=== PATIENT | male | born 1955 | race Caucasian/White ===

== ENCOUNTER 2020-09-04 06:58 | Outpatient (REF) | payer MEDICARE, SELFPAY ==
[2020-09-04 11:11] LABS: MANUAL DIFF FLAG NO
[2020-09-04 11:31] LABS: Basophils Percent Auto 0.5 % (0-2); Eosinophils Absolute Auto 0.1 X10*3/uL (0.0-0.4); Hematocrit 41.7 % (42-52); Hemoglobin 12.5 g/dl (14.0-18.0); Imm Gran Pct Auto 1.3 % (0.0-0.4); Lymphocytes Absolute Auto 1.1 X10*3/uL (1.2-4.9); Lymphocytes Percent Auto 13.4 % (20-40); Mean Corpuscular Hemoglobin 20.1 pg (27.0-33.0); Mean Platelet Volume 10.3 fL (9.4-12.4); Monocytes Absolute Auto 0.5 X10*3/uL (0.1-1.2); Monocytes Percent Auto 5.8 % (2-11); Neutrophils Absolute Auto 6.3 X10*3/uL (2.0-8.3); Platelet Count 312 X10*3/uL (160-400); Red Blood Count 6.22 X10*6/uL (4.60-5.80); Red Cell Distribution Width 17.9 % (11.0-16.0)
[2020-09-04 11:56] LABS: Alanine Aminotransferase 37 U/L (0-40); Albumin Level 4.6 g/dL (3.5-5.0); Alkaline Phosphatase 67 U/L (39-117); Anion Gap 15 (12-20); Aspartate Amino Transferase 18 U/L (5-37); Bilirubin Direct 0.3 mg/dL (0.0-0.5); Bilirubin Total 0.6 mg/dL (0.0-1.0); Blood Urea Nitrogen 18 mg/dL (9-16); Calcium 9.1 mg/dL (8.4-10.2); Carbon Dioxide 29 mmol/L (22-29); Chloride 100 mmol/L (96-108); Estimated Glomerular Filt Rate > 60; Glucose Random 200 mg/dL (60-115); Potassium 4.4 mmol/l (3.3-5.1); Sodium 140 mmol/L (135-145); Total Protein 7.1 g/dL (6.5-8.0); Uric Acid 6.8 mg/dL (3.4-7.0)
== END 2020-09-04 06:59 | disposition home or self-care (01) ==
LOC: HO.HMGCLDS 06:58
PROVIDERS: PCP Internal Medicine; Visit Provider Internal Medicine
DX: G70.00 Myasthenia gravis without (acute) exacerbation (principal); I10 Essential (primary) hypertension; M79.675 Pain in left toe(s)
CPT/HCPCS: 36415; 80048; 80076; 84550; 85025

== ENCOUNTER 2020-12-21 06:56 | Outpatient (REF) | payer MEDICARE, SELFPAY ==
[2020-12-21 11:15] LABS: Glucose Urine UA 100 MG/DL (NEG); Leukocyte Esterase Urine NEG (NEG); Nitrite Urine NEG (NEG); PH 6.5 (5.0-8.0); Urine Blood NEG (NEG); Urine Ketones NEG (NEG); Urine Protein NEG (NEG-TRACE)
[2020-12-21 11:17] LABS: Appearance Urine CLEAR; Color Urine YELLOW
[2020-12-21 11:58] LABS: Alanine Aminotransferase 37 U/L (0-40); Anion Gap 20 (12-20); Aspartate Amino Transferase 16 U/L (5-37); Blood Urea Nitrogen 15 mg/dL (9-16); Carbon Dioxide 28 mmol/L (22-29); Chloride 97 mmol/L (96-108); Cholesterol 228 mg/dL; Estimated Glomerular Filt Rate > 60; Glucose Fasting 251 mg/dL (60-99); HDL Cholesterol 36 mg/dL; LDL Cholesterol Calculated 147 mg/dl; Sodium 141 mmol/L (135-145); Triglycerides 227 mg/dL
[2020-12-21 12:03] LABS: Estimated Average Glucose 174 mg/dL; Hemoglobin A1c % 7.7 %
[2020-12-21 12:20] LABS: Prostate Specific Antigen 1.03 ng/mL (<0.05-4.0)
== END 2020-12-21 06:57 | disposition home or self-care (01) ==
LOC: HO.HMGCLDS 06:56
PROVIDERS: PCP Internal Medicine; Visit Provider Internal Medicine
DX: R35.0 Frequency of micturition (principal); E78.5 Hyperlipidemia, unspecified; I10 Essential (primary) hypertension; R73.01 Impaired fasting glucose; Z12.5 Encounter for screening for malignant neoplasm of prostate
CPT/HCPCS: 36415; 80048; 80061; 81003; 83036; 84153; 84450; 84460

== ENCOUNTER 2021-01-14 16:29 | Outpatient (REF) | payer MEDICARE, SELFPAY ==
--- NOTE | ~2021-01-14 | MR_ITS ---
MR LUMBAR SPINE WITHOUT CONTRAST CLINICAL INFORMATION: Lumbago with left-sided sciatica. COMPARISON: None available. TECHNIQUE: MRI of the lumbar spine was obtained using routine sequences without contrast. FINDINGS: There is grade 1 anterolisthesis of L4 on L5 and L5 on S1. Leftward convex lumbar scoliosis. Vertebral body heights are maintained. Moderate to severe disc volume loss at L4-L5 and mild disc volume loss at L5-S1. Vacuum phenomenon at the L4-L5 and L5-S1 levels. There Modic type I endplate signal changes at L4-L5 and L5-S1. There are no acute fractures. Conus terminates at the L1 level. Bilateral perinephric stranding. L1-L2: Disc contour is normal. No central canal stenosis and no foraminal stenosis. L2-L3: Small annular disc bulge and mild to moderate bilateral facet arthropathy. No central canal stenosis and no foraminal stenosis. L3-L4: There is a diffuse annular disc bulge and there is moderate bilateral facet arthropathy and ligamentum flavum thickening. Mild narrowing of the central canal as well as mild to moderate right and mild left foraminal stenosis without exiting nerve root compression. L4-L5: Superiorly migrating right paracentral disc extrusion and severe bilateral facet arthropathy, ligamentum flavum thickening, and epidural lipomatosis resulting in severe central canal stenosis as well as severe right and moderate left foraminal stenosis with compression of the exiting right greater than left L4 nerve roots. L5-S1: Grade 1 anterolisthesis. Severe bilateral facet arthropathy and ligamentum flavum thickening. Large bilateral facet joint effusions. No central canal stenosis. Moderate to severe left and moderate right foraminal stenosis with compression of the exiting left greater than right L5 nerve roots. MR/MR lumbar spine wo con IMPRESSION: - At L5-S1, grade 1 anterolisthesis in the setting of advanced multifactorial degenerative changes result in moderate to severe left and moderate right foraminal stenosis with compression of the exiting left greater than right L5 nerve roots. Large bilateral facet joint effusions at L5-S1 that can be correlated with flexion-extension views to exclude segmental instability. - At L4-L5, there is grade 1 anterolisthesis in the setting of advanced multifactorial degenerative changes but along with a superiorly migrating right paracentral disc extrusion and epidural lipomatosis result in severe central canal stenosis as well as severe right and moderate left foraminal stenosis with compression of the exiting right greater than left L4 nerve roots. - Additional degenerative findings as discussed above.
== END 2021-01-14 16:30 | disposition home or self-care (01) ==
LOC: HO.MRI 16:29
PROVIDERS: Visit Provider Internal Medicine
DX: M54.42 Lumbago with sciatica, left side (principal)
CPT/HCPCS: 72148

== ENCOUNTER 2021-03-05 11:16 | Outpatient (REF) | payer MEDICARE, SELFPAY ==
[2021-03-05 14:27] LABS: Estimated Average Glucose 131 mg/dL; Hemoglobin A1c % 6.2 %
[2021-03-05 14:30] LABS: Alanine Aminotransferase 23 U/L (0-40); Anion Gap 16 (12-20); Aspartate Amino Transferase 18 U/L (5-37); Blood Urea Nitrogen 16 mg/dL (9-16); Calcium 9.6 mg/dL (8.4-10.2); Carbon Dioxide 26 mmol/L (22-29); Chloride 102 mmol/L (96-108); Cholesterol 215 mg/dL; Estimated Glomerular Filt Rate > 60; Glucose Fasting 108 mg/dL (60-99); HDL Cholesterol 52 mg/dL; LDL Cholesterol Calculated 127 mg/dl; Potassium 3.4 mmol/L (3.3-5.1); Sodium 141 mmol/L (135-145); Triglycerides 181 mg/dL
[2021-03-05 14:33] LABS: Creatinine Urine 65.19 mg/dL; Microalbumin Urine < 5.0 mg/L
== END 2021-03-05 11:17 | disposition home or self-care (01) ==
LOC: HO.HMGCLDS 11:16
PROVIDERS: PCP Internal Medicine; Visit Provider Internal Medicine
DX: E11.65 Type 2 diabetes mellitus with hyperglycemia (principal); I10 Essential (primary) hypertension; E78.2 Mixed hyperlipidemia
CPT/HCPCS: 36415; 80048; 80061; 82043; 83036; 84450; 84460

== ENCOUNTER 2021-09-13 06:59 | Outpatient (REF) | payer MEDICARE, SELFPAY ==
[2021-09-13 11:56] LABS: Estimated Average Glucose 143 mg/dL; Hemoglobin A1c % 6.6 %
[2021-09-13 12:15] LABS: Alanine Aminotransferase 20 U/L (0-40); Anion Gap 14 (12-20); Aspartate Amino Transferase 15 U/L (5-37); Blood Urea Nitrogen 14 mg/dL (9-16); Calcium 9.8 mg/dL (8.4-10.2); Carbon Dioxide 29 mmol/L (22-29); Chloride 102 mmol/L (96-108); Cholesterol 184 mg/dL; Estimated Glomerular Filt Rate > 60; Glucose Fasting 152 mg/dL (60-99); HDL Cholesterol 37 mg/dL; LDL Cholesterol Calculated 111 mg/dl; Potassium 3.7 mmol/L (3.3-5.1); Sodium 141 mmol/L (135-145); Triglycerides 183 mg/dL; Uric Acid 8.9 mg/dL (3.4-7.0)
[2021-09-13 12:36] LABS: PSA,Total (Free>4and<10) 0.84 ng/mL (0.00-4.00)
== END 2021-09-13 07:00 | disposition home or self-care (01) ==
LOC: HO.HMGCLDS 06:59
PROVIDERS: PCP Internal Medicine; Visit Provider Internal Medicine
DX: Z12.5 Encounter for screening for malignant neoplasm of prostate (principal); E11.9 Type 2 diabetes mellitus without complications; E78.5 Hyperlipidemia, unspecified; I10 Essential (primary) hypertension; R22.41 Localized swelling, mass and lump, right lower limb
CPT/HCPCS: 36415; 80048; 80061; 83036; 84153; 84450; 84460; 84550

== ENCOUNTER → 2021-10-09 09:10 | Outpatient (BNVA) | payer MEDICARE, SELFPAY | PROVIDERS: PCP Internal Medicine; Referring Provider Internal Medicine; Visit Provider Physician Assistant | DX: Z12.11 Encounter for screening for malignant neoplasm of colon (principal); K21.9 Gastro-esophageal reflux disease without esophagitis; K44.9 Diaphragmatic hernia without obstruction or gangrene | CPT/HCPCS: 99202 ==

== ENCOUNTER 2022-07-15 09:27 | Outpatient (REF) | payer MEDICARE, SELFPAY ==
[2022-07-15 12:00] LABS: Estimated Average Glucose 146 mg/dL; Hemoglobin A1C 150.6995 umol/L; Hemoglobin A1c % 6.7 %
[2022-07-15 12:09] LABS: Creatinine Urine 67.27 mg/dL; Microalbum/Creatinine Ratio Ur 11.8 ug/mg cr
[2022-07-15 12:17] LABS: Alanine Aminotransferase 32 U/L (0-40); Anion Gap 14 (12-20); Aspartate Amino Transferase 21 U/L (5-37); Blood Urea Nitrogen 14 mg/dL (9-16); Calcium 9.3 mg/dL (8.4-10.2); Carbon Dioxide 29 mmol/L (22-29); Chloride 103 mmol/L (96-108); Cholesterol 213 mg/dL; Estimated Glomerular Filt Rate > 60; Glucose Fasting 173 mg/dL (60-99); HDL Cholesterol 50 mg/dL; LDL Cholesterol Calculated 132 mg/dl; PSA,Total (Free>4and<10) 0.76 ng/mL (0.00-4.00); Sodium 142 mmol/L (135-145); Triglycerides 156 mg/dL; Vitamin D 25-OH Total 20.8 ng/mL (>30)
== END 2022-07-15 09:28 | disposition home or self-care (01) ==
LOC: HO.HMGCLDS 09:27
PROVIDERS: PCP Internal Medicine; Visit Provider Internal Medicine
DX: E11.9 Type 2 diabetes mellitus without complications (principal); I10 Essential (primary) hypertension; E78.5 Hyperlipidemia, unspecified; G70.00 Myasthenia gravis without (acute) exacerbation; Z12.5 Encounter for screening for malignant neoplasm of prostate
CPT/HCPCS: 36415; 80048; 80061; 82043; 82306; 83036; 84153; 84450; 84460

== ENCOUNTER 2022-12-09 06:56 | Day surgery (SDC) | payer MEDICARE, SELFPAY ==
[2022-12-04 12:47] VITALS: BMI 32.8
--- NOTE | 2022-12-08 12:38 | P.CONAN_ITS ---
Documented by User: Marla Alfonso NP 12/08/22 12:40 HPI - Anesthesia Eval Consult details Narrative: 67yo M for Colonoscopy Myesthenia Gravis on daily low dose prednisone s/p L main bronch carcinoid tumor resection ~2016 [facility] Active Problems Active Problems: All Active Problems (Updated 12/04/22 @ 12:35 by Colleen Thao, RN) Hypertension, essential (Acute) Myasthenia gravis (Acute) Left wrist tendinitis (Acute) Encounter for screening for malignant neoplasm of prostate (Acute) Dyslipidemia (Acute) Type 2 diabetes mellitus without complication, without long-term current use of insulin (Acute) Hiatal hernia with GERD (Acute) Lumbar disc herniation with radiculopathy (Acute) Bronchial carcinoid tumors (Acute) Osteoarthritis of knees, bilateral (Acute) Hernandez anemia (Acute) Past Medical History Medical History (Updated 12/09/22 @ 07:12 by Renetta Nathan, GRACE) Bronchial carcinoid tumors Hernandez anemia Dyslipidemia Elevated cholesterol Encounter for screening for malignant neoplasm of prostate GERD (gastroesophageal reflux disease) Hiatal hernia with GERD History of COVID-19 HTN (hypertension) Left wrist tendinitis Loose right total knee arthroplasty Lumbago with sciatica, left side Lumbar disc herniation with radiculopathy Myasthenia gravis Osteoarthritis of knees, bilateral Spondylolisthesis of lumbar region Family History Family History Mother Hernandez anemia Father Essential hypertension Surgical History Surgical History (Updated 12/04/22 @ 12:42 by Colleen Thao RN) H/O thymectomy History of appendectomy History of esophagogastroduodenoscopy (EGD) Hx of colonoscopy Social History Social History Housing: House Alcohol intake: current Alcohol intake frequency: holidays/special occasions only Patient Tobacco Use Status: Never used Tobacco e-Cigarette/Vaping Use: Never Used Are you DNR?: No Advance Directives: No Advance Directives Information Provided: Yes Nutrition Risks: No Nutritional Risk service: No Current occupational status: employed Meds Allergies Allergy/AdvReac Type Severity Reaction Status Date / Time morphine AdvReac Unknown stomach Verified 07/15/22 08:30 upset Home Medications Medication Instructions Recorded Confirmed Last Taken Type amlodipine 5 mg-benazepril 20 mg 1 cap PO DAILY 01/04/21 12/04/22 Unknown History capsule calcium carbonate 600 mg-vitamin 1 tab PO BID 01/04/21 12/04/22 Unknown History D3 5 mcg (200 unit) tablet chlorthalidone 25 mg tablet 25 mg PO DAILY 10/09/21 12/04/22 Unknown History prednisone 1 mg tablet 4 mg PO QAM 12/04/22 12/04/22 12/09/22 History rosuvastatin 5 mg tablet 5 mg PO 3XW 12/04/22 12/04/22 Unknown History Exam Exam Date and Time: December 08, 2022 1238 Height,Weight and Vital Signs: Height 6 ft Weight 109.769 kg Assessment and Plan Assessment Anesthesia Assessment: Chart Reviewed Documented by User: Emilie Viramontes MD 12/09/22 09:36 [facility] Past Medical History Medical History (Updated 12/09/22 @ 07:12 by Renetta Nathan, GRACE) Bronchial carcinoid tumors Hernandez anemia Dyslipidemia Elevated cholesterol Encounter for screening for malignant neoplasm of prostate GERD (gastroesophageal reflux disease) Hiatal hernia with GERD History of COVID-19 HTN (hypertension) Left wrist tendinitis Loose right total knee arthroplasty Lumbago with sciatica, left side Lumbar disc herniation with radiculopathy Myasthenia gravis Osteoarthritis of knees, bilateral Spondylolisthesis of lumbar region Family History Family History Mother Hernandez anemia Father Essential hypertension Family history of problems with anesthesia: No Surgical History Surgical History (Updated 12/04/22 @ 12:42 by Colleen Thao RN) H/O thymectomy History of appendectomy History of esophagogastroduodenoscopy (EGD) Hx of colonoscopy History of Problems with Anesthesia: No Social History Social History Housing: House Alcohol intake: current Alcohol intake frequency: holidays/special occasions only Patient Tobacco Use Status: Never used Tobacco e-Cigarette/Vaping Use: Never Used Are you DNR?: No Advance Directives: No Advance Directives Information Provided: Yes Nutrition Risks: No Nutritional Risk service: No Current occupational status: employed Meds Allergies Allergy/AdvReac Type Severity Reaction Status Date / Time morphine AdvReac Unknown stomach Verified 07/15/22 08:30 upset Home Medications Medication Instructions Recorded Confirmed Last Taken Type amlodipine 5 mg-benazepril 20 mg 1 cap PO DAILY 01/04/21 12/04/22 Unknown History capsule calcium carbonate 600 mg-vitamin 1 tab PO BID 01/04/21 12/04/22 Unknown History D3 5 mcg (200 unit) tablet chlorthalidone 25 mg tablet 25 mg PO DAILY 10/09/21 12/04/22 Unknown History prednisone 1 mg tablet 4 mg PO QAM 12/04/22 12/04/22 12/09/22 History rosuvastatin 5 mg tablet 5 mg PO 3XW 12/04/22 12/04/22 Unknown History Exam Airway Mallampati Class: II TM Dist: >3cm Neck ROM: Full Heart: rr Lungs: cta Assessment and Plan Assessment Anesthesia Assessment: Anesthesia Plan Discussed Final Anesthetic Review Family History of Problems with Anesthesia: No History of Problems with Anesthesia: No NPO: Yes ASA Class: II Final Preanesthetic Review: No Changes in Pt Med Stat and Consent Obtained/Reviewed Patient Risk: Low Procedure Risk: Low Anesthetic Plan Anesthetic Plan: MAC: Disposition: Standard PACU
[2022-12-09 07:02] VITALS: BP 170/90; PULSE 78; RESP 20; TEMP 36.6; O2SAT 97
[2022-12-09] MEDS: Lactated Ringers 1,000 ML 100 ML IVCONT (07:20)
--- NOTE | 2022-12-09 08:12 | MHC.SHP ---
Pre-Procedural Eval Section A Date of Service: 12/09/22 Section B Chief Complaint: screening Relevant Family History (Specify if Yes): No Relevant Social History: None Present Medications: see Short Stay Collaborative assessment Medical History: Significant History (Bronchial carcinoid tumors Hernandez anemia Dyslipidemia Hiatal hernia with GERD Loose right total knee arthroplasty Lumbago with sciatica, left side Lumbar disc herniation with radiculopathy Osteoarthritis of knees, bilateral Spondylolisthesis of lumbar region Type 2 diabetes mellitus without complica) History of Previous Operations: Relevant previous surgery/procedure and date(s) (H/O thymectomy History of appendectomy History of esophagogastroduodenoscopy (EGD) Hx of colonoscopy) Allergies: Allergies Allergy/AdvReac Type Severity Reaction Status Date / Time morphine AdvReac Unknown stomach Verified 07/15/22 08:30 upset Review of Systems Sugical H&P ROS: Negative: Constitution, Cardiovascular, Respiratory, Neurological, Psychiatric, Hem-Onc, Allergic/Immunologic, Gastrointestinal, Genitourinary, Musculoskeletal, Integumentary, Endocrine and Eyes/Ears/Nose/Throat Exam Surgical H&P Exam: Normal: HEENT, Normal: Heart, Normal: Lungs, Normal: Extremities, Normal: Abdomen, Normal: Skin and Normal: Neurological Plan Diagnosis/Plan: Unchanged I have reviewed the history and physical and performed a pertinent physical examination on my patient. No changes have occurred unless specified. Time Spent With Patient Time: Total time managing care of this patient today ____ minutes.
--- NOTE | 2022-12-09 08:14 | P.OP_ITS ---
Operative Note Operative Note Date of Service: 12/09/22 Narrative: Operative Information Procedure Description: Colonoscopy Indication: screening Anesthesia: MAC COLONOSCOPY Instrument: Olympus variable stiffness pediatric scope 190L Colonoscopy Monitoring: Vital signs and clinical assessment, continuous EKG monitoring, Pulse oximetry, Carbon Dioxide monitoring and blood pressure monitoring were done throughout the procedure. Colon withdrawal time was 9 minutes. Procedure: The patient was placed in the left lateral decubitis position and pre-procedure medications were administered. After a digital rectal examination of the ano-rectum, the video colonoscope was inserted into the rectum and advanced through the colon to the cecum/TI. The colonoscope was slowly withdrawn in a retrograde panoramic fashion and the colon mucosa was carefully examined including a retroflexed view of the rectum. Findings and interventions are described below. Procedure Difficulty: easy Findings: Terminal Ileum-normal Cecum:normal Ascending Colon: 6-8 mm sessile polyp removed with cold snare, not retrieved Transverse Colon -normal Descending Colon:normal Sigmoid Colon: 7-9 mm sessile polyp removed with cold snare, retrieved Rectum: Retroflexion with medium sized internal hemorrhoids, grade I Anorectum - normal Colon preparation: [place] Bowel Preparation Scale Right colon; 2 Transverse colon: 3 Left colon; 2 (0 = Unprepared colon segment with mucosa not seen due to solid stool that cannot be cleared. 1 = Portion of mucosa of the colon segment seen, but other areas of the colon segment not well seen due to staining, residual stool and/or opaque liquid. 2 = Minor amount of residual staining, small fragments of stool and/or opaque liquid, but mucosa of colon segment seen well. 3 = Entire mucosa of colon segment seen well with no residual staining, small fragments of stool or opaque liquid) Impression and Post Procedure Diagnosis: polyps internal hemorrhoids Plan: High fiber diet leaflet Avoid straining at stool, epsom salts and sitz bath, anusol supps or cream Repeat Colonoscopy in 5-6 years or earlier if clinically indicated Above findings were reviewed with the patient and relevant handouts were provided if indicated.
[2022-12-09 08:50] VITALS: BP 108/56; PULSE 70; RESP 16; TEMP 36.4; O2SAT 94
[2022-12-09 09:08] VITALS: BP 133/71; PULSE 67; RESP 18; TEMP 36.6; O2SAT 98
== END 2022-12-09 09:50 | disposition home or self-care (01) ==
PROVIDERS: PCP Internal Medicine; Visit Provider Internal Medicine Gastroenterology
PROC: 0DJD8ZZ Inspection of Lower Intestinal Tract, Via Natural or Artificial Opening Endoscopic (ICD-10-PCS; CPT 45378; principal; 2022-12-09 08:10)
DX: Z12.11 Encounter for screening for malignant neoplasm of colon (principal); Z80.0 Family history of malignant neoplasm of digestive organs; D12.5 Benign neoplasm of sigmoid colon; K63.5 Polyp of colon; K64.0 First degree hemorrhoids; D56.1 Beta thalassemia; K21.9 Gastro-esophageal reflux disease without esophagitis; K44.9 Diaphragmatic hernia without obstruction or gangrene; E78.5 Hyperlipidemia, unspecified; E11.9 Type 2 diabetes mellitus without complications; Z88.8 Allergy status to other drugs, medicaments and biological substances; Z85.110 Personal history of malignant carcinoid tumor of bronchus and lung; Z79.52 Long term (current) use of systemic steroids; Z79.899 Other long term (current) drug therapy; Z98.890 Other specified postprocedural states; Z86.16 Personal history of COVID-19
CPT/HCPCS: 45385; 88305

== ENCOUNTER → 2022-12-29 07:19 | Outpatient (BNVA) | payer MEDICARE, SELFPAY | PROVIDERS: PCP Internal Medicine; Referring Provider Internal Medicine; Visit Provider Physician Assistant | DX: K64.9 Unspecified hemorrhoids (principal); D36.9 Benign neoplasm, unspecified site | CPT/HCPCS: Q3014 ==

== ENCOUNTER 2023-01-12 11:25 | Outpatient (REF) | payer MEDICARE, SELFPAY ==
[2023-01-12 14:16] LABS: Alanine Aminotransferase 26 U/L (0-40); Anion Gap 15 (12-20); Aspartate Amino Transferase 20 U/L (5-37); Blood Urea Nitrogen 12 mg/dL (9-16); Calcium 9.6 mg/dL (8.4-10.2); Carbon Dioxide 25 mmol/L (22-29); Chloride 104 mmol/L (96-108); Cholesterol 216 mg/dL; Estimated Glomerular Filt Rate > 60; Glucose Fasting 134 mg/dL (60-99); HDL Cholesterol 51 mg/dL; LDL Cholesterol Calculated 129 mg/dl; Sodium 140 mmol/L (135-145); Triglycerides 181 mg/dL; Uric Acid 9.2 mg/dL (3.4-7.0)
[2023-01-12 14:26] LABS: Creatinine Urine 38.66 mg/dL; Microalbum/Creatinine Ratio Ur 23.2 ug/mg cr
[2023-01-12 14:34] LABS: PSA,Total (Free>4and<10) 0.66 ng/mL (0.00-4.00)
== END 2023-01-12 11:26 | disposition home or self-care (01) ==
LOC: HO.HMGCLDS 11:25
PROVIDERS: PCP Internal Medicine; Visit Provider Internal Medicine
DX: Z12.5 Encounter for screening for malignant neoplasm of prostate (principal); D3A.090 Benign carcinoid tumor of the bronchus and lung; E11.9 Type 2 diabetes mellitus without complications; E78.5 Hyperlipidemia, unspecified; I10 Essential (primary) hypertension; E79.0 Hyperuricemia without signs of inflammatory arthritis and tophaceous disease
CPT/HCPCS: 36415; 80048; 80061; 82043; 84153; 84450; 84460; 84550

== ENCOUNTER 2023-07-14 08:20 | Outpatient (AMB) | payer MEDICARE, SELFPAY ==
--- NOTE | 2023-07-14 08:28 | A.OFFVIS_ITS ---
<Statement entered by Janice Slater MD - 01/04/25 15:25> This note has been administratively?closed. Intake Vital Signs 07/14/23 08:29 Height 6 ft Weight 246 lb BMI 33.4 BP 134/70 Blood Pressure Location Lt brachial Position Sitting Pulse 71 Pulse Source Pulse Oximeter Pulse Oximetry (%) 97 Oxygen Delivery Method Room Air Intake Visit Reasons: SWV G0439 Allergies morphine Adverse Reaction (Unknown, Verified 07/14/23 09:19) stomach upset Medication List - Last Reconciled 07/14/23 by Janice Slater MD amlodipine-benazepril 5-20 mg 1 cap PO DAILY calcium carbonate-vitamin D3 600 mg-5 mcg (200 unit) 1 tab PO BID chlorthalidone 25 mg PO DAILY omeprazole 20 mg PO QAM prednisone 3 mg PO QAM HPI SWV G0439 HPI Details SWV ? 68-year-old male with hyperuricemia with history of gout, has hypertension, myasthenia gravies, history of bronchial carcinoid tumors, osteoarthritis of knees and Hernandez anemia , dyslipidemia and type 2 diabetes mellitus diet controlled, presents for his subsequent annual wellness visit.? He is up-to-date with his screening colonoscopy done December [address] Soler with removal of a tubular adenoma, repeat colonoscopy due in another 5 years. Had recent fasting lipid panel and fasting blood sugar done, which showed as slight elevation in his triglycerides and normal blood sugar respectively. He does not want to get any vaccinations. ? Medical / Social History Reviewed? Past Medical History ?Yes . ? [place] of Care / Care Team list updated ?Yes . ? Surgical/Hospitalization History ?Yes . ? Current Medications (including OTC and supplements) ?Yes . ? Family History ?Yes . ? Tobacco Control form ?Yes . ? AUDIT-C (Alcohol use) form ?Yes . ? Illicit drug use in Social History ?Yes . ? Current diagnosis of depression? ?No ? Appropriate PHQ2/PHQ9 completed ?Yes . ? Data entered by ?C D Stripper and reviewed by provider ? Fall Risk ? Fall History? Have you had any falls with injury in the past year? ?No . ? Have you had two or more falls in the past year? ?No . ? Fall Risk Assessment: ?No falls in the past year . ? HRA filled out by the patient, reviewed by Provider and scanned. ? IPPE/AWV ? Balance? Romberg ?Yes . ? Tandem walk ?Yes . ? Walk and Turn ?Yes . ? Rise from sit to stand ?Yes . ?Vision? Corrective lens ?no ? Vision screen ? , overdue to get his eye exam, has not been seen by an bottle selector for several years now ?Hearing? Whisper test ?pass . ?Written Plan?Completed. See Patient Documents.? [facility] Medical History (Updated 07/14/23 @ 09:26 by Janice Slater MD) Hyperuricemia History of COVID-19 Myasthenia gravis Elevated cholesterol GERD (gastroesophageal reflux disease) HTN (hypertension) Left wrist tendinitis Encounter for screening for malignant neoplasm of prostate Spondylolisthesis of lumbar region Dyslipidemia Loose right total knee arthroplasty Hiatal hernia with GERD Lumbar disc herniation with radiculopathy Bronchial carcinoid tumors Osteoarthritis of knees, bilateral Hernadnez anemia Lumbago with sciatica, left side Surgical History History of esophagogastroduodenoscopy (EGD) Hx of colonoscopy H/O thymectomy History of appendectomy Family History Mother Hernandez anemia Father Essential hypertension Social History Housing: House Alcohol intake: current Alcohol intake frequency: holidays/special occasions only Patient Tobacco Use Status: Never used Tobacco e-Cigarette/Vaping Use: Never Used service: No Current occupational status: employed Cognitive needs: No Hearing needs: No Vision needs: No Questionnaire Medicare Wellness Checkup [age] What gender do you identify with?: male During the past 4 weeks, how much have you been bothered by emotional problems such as feeling anxious, depressed, irritable, sad or downhearted, and blue?: not at all During the past 4 weeks, how much bodily pain have you generally had?: moderate pain During the past 4 weeks, was someone available to help you if you needed & wanted help?: yes, as much as I wanted During the past 4 weeks, what was the hardest physical activity you could do for at least 2 minutes?: heavy Can you get to places out of walking distance without help? (For eg., can you travel alone on buses, taxis or drive your car?): Yes Can you go shopping for groceries or clothes without someone's help?: Yes Can you prepare your own meals?: Yes Can you do your housework without help?: Yes Because of any health problems, do you need the help of another person with your personal care needs such as eating, bathing, dressing or getting around the house?: Yes Can you handle your own money without help?: Yes During the past 4 weeks, how would you rate your health in general?: very good During the past 4 weeks how have things been going for you?: pretty well Are you having difficulties driving your car?: no Do you always fasten your seat belt when you are in a car?: yes, sometimes During past 4 weeks, have you been bothered by the following: never: Falling or dizzy when standing up, Sexual problems?, Trouble eating well?, Teeth or denture problems? and Problems using the telephone? and seldom: Tiredness or fatigue? Have you fallen 2 or more times in the past year?: No Are you afraid of falling?: No Are you a smoker?: no During the past 4 weeks, how many drinks of wine, beer, or other alcoholic beverages did you have?: 2-5 drinks per week Do you exercise for about 20 minutes 3 or more times a week?: yes, some of the time Have you been given information to help with the following?: no: Hazards in your house that might hurt you? and no: Keeping track of your medications? How often do you have trouble taking medicines the way you have been told to take them?: I always take medicine as prescribed How confident are you that you can control & manage most of your health problems?: very confident What is your race?: White Mini Mental State Exam (MMSE) Orientation What is the (year) (season) (date) (day) (month)?: year (2022), season (Fall), date (07/14/2023), day (Thursday) and month (July) Where are we (state) (county) (town or city) (hospital) (floor)?: state ([place]), formerly [facility], [facility] ([place]), town or city ([place]) and hospital/clinic ([facility]) Score Score: 9 Activity of Daily Living Bathing - sponge bath, tub bath or shower: receives no assistance (gets in/out by self, if usual bathing means Dressing - getting clothes from closets & drawers, including inner/outer garments & fasteners.: gets clothes & gets completely dressed without help Toileting - going to the 'toilet room' for urine/bowel elimination & cleaning self/arranging clothes: goes to toilet room, cleans self, arranges clothes without help Transfer: moves in & out of bed and chair without help (may use support object) Continence: controls urination/bowel movements completely by self Feeding: feeds self without help Total Score: 0 Information obtained from: patient Using telephone: independent Traveling: independent Shopping: independent Preparing meals: independent Housework: independent Taking medicine: independent Managing money: independent PHQ-9 Over the last 2 weeks, how often have you been bothered by any of the following problems? 1. Little interest or pleasure in doing things: not at all 2. Feeling down, depressed, or hopeless: not at all 3. Trouble falling or staying asleep, or sleeping too much: not at all 4. Feeling tired or having little energy: not at all 5. Poor appetite or overeating: not at all 6. Feeling bad about yourself - or that you are a failure or have let yourself or your family down: not at all 7. Trouble concentrating on things, such as reading the newspaper or watching television: not at all 8. Moving or speaking so slowly that other people could have noticed. Or the opposite - being so fidgety or restless that you have been moving around a lot more than usual: not at all 9. Thoughts that you would be better off or of hurting yourself in some way: not at all Total score: 0 Depression Screening Interpretation: Negative Depression Screening Done: Yes 14740 - PHQ-9 Billing: Yes Source: Developed by Drs. Gunnar Jordan, Vandana Jerry, Marvin Natarajan and colleagues, with an educational randall from [employer]. Physical Exam Vital Signs: Last Vital Signs Pulse 71 07/14/23 08:29 BP 134/70 07/14/23 08:29 Pulse Ox 97 07/14/23 08:29 Oxygen Delivery Method Room Air 07/14/23 08:29 BMI result Body Mass Index 33.4 Assessment & Plan Assessment & Plan (1) Hyperuricemia: Code(s): E79.0 - Hyperuricemia without signs of inflammatory arthritis and tophaceous disease (2) Tubular adenoma: Code(s): D36.9 - Benign neoplasm, unspecified site (3) Hypertension, essential: Code(s): I10 - Essential (primary) hypertension (4) Myasthenia gravis: Code(s): G70.00 - Myasthenia gravis without (acute) exacerbation (5) Type 2 diabetes mellitus without complication, without long-term current use of insulin: Code(s): E11.9 - Type 2 diabetes mellitus without complications (6) Hiatal hernia with GERD: Comment: well controlled with ppi-continue to avoid culprits previous EGD- Code(s): K21.9 - Gastro-esophageal reflux disease without esophagitis; K44.9 - Diaphragmatic hernia without obstruction or gangrene (7) Lumbar disc herniation with radiculopathy: Code(s): M51.16 - Intervertebral disc disorders with radiculopathy, lumbar region (8) Osteoarthritis of knees, bilateral: Code(s): M17.0 - Bilateral primary osteoarthritis of knee (9) Hernandez anemia: Code(s): 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 (10) Encounter for subsequent annual wellness visit (AWV) in Medicare patient: Code(s): Z00.00 - Encounter for general adult medical examination without abnormal findings (11) Advanced directives, counseling/discussion: Code(s): Z71.89 - Other specified counseling Quality Reporting (2019) Depression/Bipolar (159/160/161/177) PHQ-9: Total score: 0 Coding Level of Care Code Medicare Subsequent (G0439) Diagnoses Hyperuricemia E79.0 Tubular adenoma D36.9 Hypertension, essential I10 Myasthenia gravis G70.00 Type 2 diabetes mellitus without complication, without long-term current use of insulin E11.9 Hiatal hernia with GERD K21.9; K44.9 Lumbar disc herniation with radiculopathy M51.16 Osteoarthritis of knees, bilateral M17.0 Hernandez anemia D56.1 Encounter for subsequent annual wellness visit (AWV) in Medicare patient Z00.00 Advanced directives, counseling/discussion Z71.89 CPT Codes Advance Care Planning - Time spent: 16-45 minutes ([id number]) Advance Care Planning Advance Care Planning discussion: Completed/Scanned Date of discussion: 07/14/23 Who was present: Patient Forms completed: Health Care Proxy and MOLST (Already done last visit) Time spent: 16-45 minutes Actual minutes spent: 16
[2023-07-14 08:29] VITALS: BP 134/70; PULSE 71; O2SAT 97; BMI 33.4
== END 2023-07-14 09:20 | disposition home or self-care (01) ==
PROVIDERS: Visit Provider Internal Medicine
DX: E79.0 Hyperuricemia without signs of inflammatory arthritis and tophaceous disease (principal); D36.9 Benign neoplasm, unspecified site; I10 Essential (primary) hypertension; G70.00 Myasthenia gravis without (acute) exacerbation; E11.9 Type 2 diabetes mellitus without complications; K21.9 Gastro-esophageal reflux disease without esophagitis; K44.9 Diaphragmatic hernia without obstruction or gangrene; M51.16 Intervertebral disc disorders with radiculopathy, lumbar region; M17.0 Bilateral primary osteoarthritis of knee; D56.1 Beta thalassemia; Z00.00 Encounter for general adult medical examination without abnormal findings; Z71.89 Other specified counseling
CPT/HCPCS: 99499

== ENCOUNTER 2024-07-19 10:36 | Outpatient (AMB) | payer MEDICARE, SELFPAY ==
--- NOTE | 2024-07-19 10:39 | A.OFFVIS_ITS ---
Intake Vital Signs 07/19/24 10:42 Height 6 ft Weight 239 lb BMI 32.4 BP 142/70 H Blood Pressure Location Rt brachial Position Sitting Pulse 81 Pulse Source Pulse Oximeter Pulse Oximetry (%) 99 Oxygen Delivery Method Room Air Intake Visit Reasons: SWV G0439 - see comments Intake Note: Pt is here today for his SWV: Last colonoscopy 12/09/22 Allergies morphine Adverse Reaction (Unknown, Verified 07/19/24 11:27) stomach upset Medication List - Last Reconciled 07/19/24 by Janice Slater MD amlodipine-benazepril 5-20 mg 1 cap PO DAILY calcium carbonate-vitamin D3 600 mg-5 mcg (200 unit) 1 tab PO BID chlorthalidone 25 mg PO DAILY omeprazole 20 mg PO QAM prednisone 2 mg PO QAM HPI SWV G0439 - see comments HPI Details SWV ? 69-year-old male with hyperuricemia with history of gout, has hypertension, myasthenia gravies, history of bronchial carcinoid tumors, osteoarthritis of knees and Hernandez anemia , dyslipidemia and type 2 diabetes mellitus diet controlled, presents for his subsequent annual wellness visit.? He is up-to-date with his screening colonoscopy done December [address] Soler with removal of a tubular adenoma, repeat colonoscopy due in another 5 years. Had a fasting lipid panel and fasting blood sugar done last year, which showed as slight elevation in his triglycerides and normal blood sugar respectively. He declines getting the flu shot does not want to get a COVID vaccine or the shingles vaccine but willing to get the Prevnar 20 vaccination. ? Medical / Social History Reviewed? Past Medical History ?Yes . ? [place] of Care / Care Team list updated ?Yes . ? Surgical/Hospitalization History ?Yes . ? Current Medications (including OTC and supplements) ?Yes . ? Family History ?Yes . ? Tobacco Control form ?Yes . ? AUDIT-C (Alcohol use) form ?Yes . ? Illicit drug use in Social History ?Yes . ? Current diagnosis of depression? ?No ? Appropriate PHQ2/PHQ9 completed ?Yes . ? Data entered by ?Customer Experience Associate and reviewed by provider ? Fall Risk ? Fall History? Have you had any falls with injury in the past year? ?No . ? Have you had two or more falls in the past year? ?No . ? Fall Risk Assessment: ?No falls in the past year . ? HRA filled out by the patient, reviewed by Provider and scanned. ?? SWV ? Balance? Romberg ?Yes . ? Tandem walk ?Yes . ? Walk and Turn ?Yes . ? Rise from sit to stand ?Yes . ?Vision? Corrective lens ?no ? Vision screen ? , overdue to get his eye exam, has not been seen by an container coordinator for several years now ?Hearing? Whisper test ?pass . ?Written Plan?Completed. See Patient Documents.? HPI Comments History of Present Illness Details Lui gutierrez also is here complaining of slight drooping in his right upper eyelid, which has been present now for the last several weeks. 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 Still has a foreign body sensation inside his right eye at times.. Denies any change in his vision, no abnormal tearing, no headaches. He does not have any regular eye doctor that he goes to see, would like a referral to one REPLACED BY [facility] Medical History (Updated 07/21/24 @ 01:27 by Janice Slater MD) History of adenomatous polyp of colon Drooping eyelid Hyperuricemia History of COVID-19 Myasthenia gravis Elevated cholesterol GERD (gastroesophageal reflux disease) HTN (hypertension) Left wrist tendinitis Encounter for screening for malignant neoplasm of prostate Spondylolisthesis of lumbar region Dyslipidemia Loose right total knee arthroplasty Hiatal hernia with GERD Lumbar disc herniation with radiculopathy Bronchial carcinoid tumors Osteoarthritis of knees, bilateral Hernandez anemia Lumbago with sciatica, left side Surgical History History of esophagogastroduodenoscopy (EGD) Hx of colonoscopy H/O thymectomy History of appendectomy Family History Mother Hernandez anemia Father Essential hypertension Social History Housing: House Alcohol intake: current Alcohol intake frequency: holidays/special occasions only Patient Tobacco Use Status: Never used Tobacco e-Cigarette/Vaping Use: Never Used service: No Current occupational status: employed Cognitive needs: No Hearing needs: No Vision needs: No Questionnaire Medicare Wellness Checkup What [age] What gender do you identify with?: male During the past 4 weeks, how much have you been bothered by emotional problems such as feeling anxious, depressed, irritable, sad or downhearted, and blue?: not at all During the past 4 weeks, has your physical & emotional health limited your social activities with family, friends, neighbors, or groups?: not at all During the past 4 weeks, how much bodily pain have you generally had?: mild pain During the past 4 weeks, was someone available to help you if you needed & wanted help?: yes, as much as I wanted During the past 4 weeks, what was the hardest physical activity you could do for at least 2 minutes?: very heavy Can you get to places out of walking distance without help? (For eg., can you travel alone on buses, taxis or drive your car?): Yes Can you go shopping for groceries or clothes without someone's help?: Yes Can you prepare your own meals?: Yes Can you do your housework without help?: Yes Because of any health problems, do you need the help of another person with your personal care needs such as eating, bathing, dressing or getting around the house?: No Can you handle your own money without help?: Yes During the past 4 weeks, how would you rate your health in general?: very good During the past 4 weeks how have things been going for you?: pretty well Are you having difficulties driving your car?: no Do you always fasten your seat belt when you are in a car?: yes, sometimes During past 4 weeks, have you been bothered by the following: never: Falling or dizzy when standing up, Sexual problems?, Trouble eating well?, Teeth or denture problems?, Problems using the telephone? and Tiredness or fatigue? Have you fallen 2 or more times in the past year?: No Are you afraid of falling?: No Are you a smoker?: no During the past 4 weeks, how many drinks of wine, beer, or other alcoholic beverages did you have?: 2-5 drinks per week Do you exercise for about 20 minutes 3 or more times a week?: yes, some of the time Have you been given information to help with the following?: no: Hazards in your house that might hurt you? and no: Keeping track of your medications? How often do you have trouble taking medicines the way you have been told to take them?: I always take medicine as prescribed How confident are you that you can control & manage most of your health problems?: very confident What is your race?: White Mini Mental State Exam (MMSE) Orientation What is the (year) (season) (date) (day) (month)?: year (2023), season (Fall), date (07/19/2024), day (Thursday) and month (July) Where are we (state) (county) (town or city) (hospital) (floor)?: state ([place]), county ([place]), town or city ([place]) and hospital/clinic ([facility]) Score Score: 9 Activity of Daily Living Bathing - sponge bath, tub bath or shower: receives no assistance (gets in/out by self, if usual bathing means Dressing - getting clothes from closets & drawers, including inner/outer garments & fasteners.: gets clothes & gets completely dressed without help Toileting - going to the 'toilet room' for urine/bowel elimination & cleaning self/arranging clothes: goes to toilet room, cleans self, arranges clothes without help Transfer: moves in & out of bed and chair without help (may use support object) Continence: controls urination/bowel movements completely by self Feeding: feeds self without help Total Score: 0 Information obtained from: patient Using telephone: independent Traveling: independent Shopping: independent Preparing meals: independent Housework: independent Taking medicine: independent Managing money: independent PHQ-9 Over the last 2 weeks, how often have you been bothered by any of the following problems? 1. Little interest or pleasure in doing things: not at all 2. Feeling down, depressed, or hopeless: not at all 3. Trouble falling or staying asleep, or sleeping too much: not at all 4. Feeling tired or having little energy: not at all 5. Poor appetite or overeating: not at all 6. Feeling bad about yourself - or that you are a failure or have let yourself or your family down: not at all 7. Trouble concentrating on things, such as reading the newspaper or watching television: not at all 8. Moving or speaking so slowly that other people could have noticed. Or the opposite - being so fidgety or restless that you have been moving around a lot more than usual: not at all 9. Thoughts that you would be better off or of hurting yourself in some way: not at all Total score: 0 Source: Developed by Drs. Gunnar Jordan, Vandana Jerry, Marvin Natarajan and colleagues, with an educational randall from [employer] Review of Systems Const Reports no additional complaints Eyes Reports no additional complaints Musc Reports no additional complaints Physical Exam Vital Signs: Last Vital Signs Pulse 81 07/19/24 10:42 BP 142/70 H 07/19/24 10:42 Pulse Ox 99 07/19/24 10:42 Oxygen Delivery Method Room Air 07/19/24 10:42 BMI result Body Mass Index 32.4 Eyes Other: mild ptosis right eye Alignment and Position: alignment normal Conjunctivae: conjunctivae normal Sclerae: sclerae normal Pupils: Equal, round and reactive pupils present EOM: EOMs intact bilaterally Neuro Cranial nerves: Yes Equal, round and reactive pupils present Immunizations pneumoc 20-júnior conj-dip cr(PF) 0.5 mL IM syringe Performing Provider: Janice Slater MD Performing Location: [facility] [place] [facility] Administered by: Natty Davis CMA on 07/19/24 11:51 Dose Route Admin Location Dispensed Lot Number Expiration Date NDC International Student Advisor 0.5 mL IM Right Deltoid 0.5 mL [id number] 09/30/25 4328-6873-52 [employer] Integrated VIS Given Date VIS Provided VIS Publication Date 07/19/24 Single Vaccine 21 Eligibility Eligibility Date Funding Source Not [facility] Eligible 07/19/24 Private Assessment & Plan Assessment & Plan (1) Hypertension, essential: Code(s): I10 - Essential (primary) hypertension Plan: Systolic blood pressure slightly elevated on this visit, likely due to chronic use of prednisone. Basic metabolic panel ordered (2) Myasthenia gravis: Code(s): G70.00 - Myasthenia gravis without (acute) exacerbation Plan: Followed by Neurology, currently on prednisone 2 mg 1 tablet daily in a.m. (3) Hernandez anemia: Code(s): 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 Plan: Asymptomatic, ordered a complete blood count (4) Osteoarthritis of knees, bilateral: Code(s): M17.0 - Bilateral primary osteoarthritis of knee Plan: Takes occasional NSAIDs as needed for joint pain (5) Type 2 diabetes mellitus without complication, without long-term current use of insulin: Code(s): E11.9 - Type 2 diabetes mellitus without complications Plan: Fasting basic metabolic panel and lipids as well as hemoglobin A1c ordered (6) Dyslipidemia: Code(s): E78.5 - Hyperlipidemia, unspecified Plan: Fasting lipid panel ordered (7) Drooping eyelid: Comment: right eye x 2 months , no change in vision Code(s): H02.409 - Unspecified ptosis of unspecified eyelid Qualifiers: Laterality: right Qualified Code(s): H02.401 - Unspecified ptosis of right eyelid Plan: Referred to [facility] [place] for further evaluation management. Patient however currently asymptomatic with no changes in vision reported (8) Advanced directives, counseling/discussion: Code(s): Z71.89 - Other specified counseling Plan: Initiated the conversation about Advanced Directives. Advanced Directives help patients prepare for current and future decisions about their medical treatment and place of care. Discussed with patient that it is a process where a patients current condition and prognosis are reviewed, their wishes for information regarding their illness are elicited, and likely medical dilemmas are presented and options discussed. Healthcare proxy form completed today. Already had a MOLST form completed on last visit. These forms can be amended as needed, reviewed yearly and make changes as needed (9) Encounter for subsequent annual wellness visit (AWV) in Medicare patient: Code(s): Z00.00 - Encounter for general adult medical examination without abnormal findings Plan: Medical wellness checklist discussed with patient and updated. Given Prevnar 20 today.. Up-to-date with the rest of his vaccinations. Orders: Orders Lipid Panel 07/19/24 D3A.090 - Benign carcinoid tumor of the bronchus and lung, 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, E11.9 - Type 2 diabetes mellitus without complications, E78.5 - Hyperlipidemia, unspecified, G70.00 - Myasthenia gravis without (acute) exacerbation, I10 - Essential (primary) hypertension, M17.0 - Bilateral primary osteoarthritis of knee, Z12.5 - Encounter for screening for malignant neoplasm of prostate, Z86.0101 - Personal history of adenomatous and serrated colon polyps Hemoglobin A1c 07/19/24 D3A.090 - Benign carcinoid tumor of the bronchus and lung, 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, E11.9 - Type 2 diabetes mellitus without complications, E78.5 - Hyperlipidemia, unspecified, G70.00 - Myasthenia gravis without (acute) exacerbation, I10 - Essential (primary) hypertension, M17.0 - Bilateral primary osteoarthritis of knee, Z12.5 - Encounter for screening for malignant neoplasm of prostate, Z86.0101 - Personal history of adenomatous and serrated colon polyps Aspartate Amino Transferase 07/19/24 D3A.090 - Benign carcinoid tumor of the bronchus and lung, 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, E11.9 - Type 2 diabetes mellitus without complications, E78.5 - Hyperlipidemia, unspecified, G70.00 - Myasthenia gravis without (acute) exacerbation, I10 - Essential (primary) hypertension, M17.0 - Bilateral primary osteoarthritis of knee, Z12.5 - Encounter for screening for malignant neoplasm of prostate, Z86.0101 - Personal history of adenomatous and serrated colon polyps Alanine Aminotransferase 07/19/24 D3A.090 - Benign carcinoid tumor of the bronchus and lung, 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, E11.9 - Type 2 diabetes mellitus without complications, E78.5 - Hyperlipidemia, unspecified, G70.00 - Myasthenia gravis without (acute) exacerbation, I10 - Essential (primary) hypertension, M17.0 - Bilateral primary osteoarthritis of knee, Z12.5 - Encounter for screening for malignant neoplasm of prostate, Z86.0101 - Personal history of adenomatous and serrated colon polyps Complete Blood Count Auto Diff 07/19/24 D3A.090 - Benign carcinoid tumor of the bronchus and lung, 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, E11.9 - Type 2 diabetes mellitus without complications, E78.5 - Hyperlipidemia, unspecified, G70.00 - Myasthenia gravis without (acute) exacerbation, I10 - Essential (primary) hypertension, M17.0 - Bilateral primary osteoarthritis of knee, Z12.5 - Encounter for screening for malignant neoplasm of prostate, Z86.0101 - Personal history of adenomatous and serrated colon polyps Pneumococcal 20 Immunization 07/19/24 Z23 - Encounter for immunization PSA,Total (Free>4and<10) 07/19/24 Z12.5 - Encounter for screening for malignant neoplasm of prostate Basic Metabolic Panel Fasting 07/19/24 D3A.090 - Benign carcinoid tumor of the bronchus and lung, 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, E11.9 - Type 2 diabetes mellitus without complications, E78.5 - Hyperlipidemia, unspecified, G70.00 - Myasthenia gravis without (acute) exacerbation, I10 - Essential (primary) hypertension, M17.0 - Bilateral primary osteoarthritis of knee, Z12.5 - Encounter for screening for malignant neoplasm of prostate, Z86.0101 - Personal history of adenomatous and serrated colon polyps Referrals Ophthalmology Referral H02.409 - Unspecified ptosis of unspecified eyelid Quality Reporting (2019) Depression/Bipolar (159/160/161/177) PHQ-9: Total score: 0 Coding Level of Care Code Medicare Subsequent (G0439) Est Pt Level 3 (67078) Diagnoses Hypertension, essential I10 Myasthenia gravis G70.00 Hernandez anemia D56.1 Osteoarthritis of knees, bilateral M17.0 Type 2 diabetes mellitus without complication, without long-term current use of insulin E11.9 Dyslipidemia E78.5 Ptosis of right eyelid H02.401 Laterality: right Advanced directives, counseling/discussion Z71.89 Encounter for subsequent annual wellness visit (AWV) in Medicare patient Z00.00 CPT Codes Advance Care Planning - Time spent: 16-45 minutes ([id number]) Advance Care Planning Advance Care Planning discussion: Completed/Scanned Date of discussion: 07/19/24 Who was present: Patient Forms completed: Health Care Proxy and MOLST (Already done last visit) Time spent: 16-45 minutes Actual minutes spent: 3
[2024-07-19 10:42] VITALS: BP 142/70; PULSE 81; O2SAT 99; BMI 32.4
== END 2024-07-19 11:58 | disposition home or self-care (01) ==
PROVIDERS: PCP Internal Medicine; Visit Provider Internal Medicine
DX: Z00.00 Encounter for general adult medical examination without abnormal findings (principal); I10 Essential (primary) hypertension; G70.00 Myasthenia gravis without (acute) exacerbation; E11.69 Type 2 diabetes mellitus with other specified complication; D56.1 Beta thalassemia; M17.0 Bilateral primary osteoarthritis of knee; E78.5 Hyperlipidemia, unspecified; H02.401 Unspecified ptosis of right eyelid

== ENCOUNTER 2024-07-19 10:36 | Outpatient (REF) | payer MEDICARE, SELFPAY ==
[2024-07-19 13:22] LABS: MANUAL DIFF FLAG NO
[2024-07-19 14:08] LABS: Basophils Absolute Auto 0.1 X10*3/uL (0.0-0.2); Basophils Percent Auto 0.7 % (0-2); Eosinophils Absolute Auto 0.2 X10*3/uL (0.0-0.4); Eosinophils Percent Auto 2.7 % (0-4); Imm Gran Abs Auto 0.05 X10*3/uL (0.00-0.03); Imm Gran Pct Auto 0.7 % (0.0-0.4); Lymphocytes Absolute Auto 1.8 X10*3/uL (1.2-4.9); Lymphocytes Percent Auto 23.8 % (20-40); Mean Corpuscular Hemoglobin 19.8 pg (27.0-33.0); Monocytes Absolute Auto 0.5 X10*3/uL (0.1-1.2); Monocytes Percent Auto 6.4 % (2-11); Neutrophils Absolute Auto 4.8 x10*3/uL (2.0-8.3); Neutrophils Percent Auto 65.7 % (45-73); Platelet Count 202 X10*3/uL (160-400); Red Blood Count 6.55 X10*6/uL (4.60-5.80); Red Cell Distribution Width 18.2 % (11.0-16.0); White Blood Count 7.4 X10*3/uL (4.8-10.8)
[2024-07-19 14:09] LABS: Mean Corpuscular Volume 64.1 fL (80.0-98.0)
[2024-07-19 14:10] LABS: Estimated Average Glucose 183 mg/dL; Hemoglobin A1C 206.2157 umol/L; Total Hemoglobin (HGBA1C) 3203.9937 umol/L
[2024-07-19 14:20] LABS: Anion Gap 11 (12-20); Aspartate Amino Transferase 30 U/L (5-37); Blood Urea Nitrogen 15 mg/dL (9-16); Calcium 9.9 mg/dL (8.4-10.2); Carbon Dioxide 29 mmol/L (22-29); Chloride 105 mmol/L (96-108); Cholesterol 230 mg/dL (<200); Estimated Glomerular Filt Rate > 60; Glucose Fasting 194 mg/dL (60-99); HDL Cholesterol 45 mg/dL (>40); LDL Cholesterol Calculated 143 mg/dL (<100); Sodium 141 mmol/L (135-145); Triglycerides 211 mg/dL (<150)
[2024-07-19 14:33] LABS: PSA,Total (Free>4and<10) 0.85 ng/mL (0.00-4.00)
[2024-07-19 14:50] LABS: Alanine Aminotransferase 51 U/L (0-40)
== END 2024-07-19 10:37 | disposition home or self-care (01) ==
LOC: HO.HMGCLDS 10:36
PROVIDERS: PCP Internal Medicine; Visit Provider Internal Medicine
DX: I10 Essential (primary) hypertension (principal); G70.00 Myasthenia gravis without (acute) exacerbation; E78.5 Hyperlipidemia, unspecified; E11.9 Type 2 diabetes mellitus without complications; D56.1 Beta thalassemia; Z86.0101 Personal history of adenomatous and serrated colon polyps; M17.0 Bilateral primary osteoarthritis of knee; D3A.090 Benign carcinoid tumor of the bronchus and lung; Z12.5 Encounter for screening for malignant neoplasm of prostate; Z23 Encounter for immunization
CPT/HCPCS: 36415; 80048; 80061; 83036; 84153; 84450; 84460; 85025; 90471; 90677; 99212

== ENCOUNTER 2024-11-21 06:51 | Outpatient (REF) | payer MEDICARE, SELFPAY ==
[2024-11-21 10:56] LABS: Estimated Average Glucose 160 mg/dL; Hemoglobin A1C 190.8677 umol/L; Hemoglobin A1c % 7.2 % (<6.0); Total Hemoglobin (HGBA1C) 3468.7152 umol/L
[2024-11-21 11:21] LABS: Alanine Aminotransferase 39 U/L (0-40); Anion Gap 13 (12-20); Aspartate Amino Transferase 29 U/L (5-37); Blood Urea Nitrogen 15 mg/dL (9-16); Calcium 9.6 mg/dL (8.4-10.2); Carbon Dioxide 26 mmol/L (22-29); Chloride 107 mmol/L (96-108); Cholesterol 171 mg/dL (<200); Estimated Glomerular Filt Rate > 60; Glucose Fasting 169 mg/dL (60-99); HDL Cholesterol 39 mg/dL (>40); LDL Cholesterol Calculated 95 mg/dL (<100); Potassium 3.8 mmol/L (3.3-5.1); Sodium 142 mmol/L (135-145); Triglycerides 186 mg/dL (<150)
[2024-11-21 11:23] LABS: Creatinine Urine 104.43 mg/dL; Microalbum/Creatinine Ratio Ur 29.6 ug/mg cr (<30)
== END 2024-11-21 06:52 | disposition home or self-care (01) ==
LOC: HO.HMGCLDS 06:51
PROVIDERS: PCP Internal Medicine; Visit Provider Internal Medicine
DX: E11.65 Type 2 diabetes mellitus with hyperglycemia (principal); E78.2 Mixed hyperlipidemia
CPT/HCPCS: 36415; 80048; 80061; 82043; 82550; 82570; 83036; 84450; 84460

== ENCOUNTER 2024-11-22 07:49 | Outpatient (AMB) | payer MEDICARE, SELFPAY ==
--- OUTSIDE RECORDS SUMMARY | 2024-11-22 07:56 | XMS_ITS | Encounter Summary ---
Author Organization [facility], Address [address] [place] [address] Phone Care Team Providers Care International Tax Manager Name Role Phone Ramírez Slater MD Primary Care Provider [phone]- [phone] Encounter Details Date Type Department Care Team (Late Contact Info) Description 03/31/2023 Documentation Only [facility] [address] [place] [address] Fabrice [place], [place] [address] [place] [address] Social History Tobacco Use Types Packs/Day Years Used Date Smoking Tobacco: Former Cigarettes Q uit: 08/31/1995 Comments:Smoking History Inf o:Every day Alcohol Use Standard Drinks/Week Comments Yes 0 (1 standard drink = 0.6 oz pure alcohol) Alcoholic Drinks/day: Occasional social drink Sex and Gender Information Value Date Recorded Sex Assigned at Not on file Legal Sex Male 4:33 PM EST Gender Identity Not on file Sexual Orientation Not on file documented as of this encounter Plan of Treatment Upcoming Encounters Date Type Department Care Team (Late Contact Info) Description 03/15/2025 1:30 PM EDT Office Visit [facility] [address] [place] [address] Magdy Tsai [address] [place] [address] documented as of this encounter Visit Diagnoses Not on filedocumented in this encounter Care Teams International Tax Manager Relationship Specialty Start Date End Date Ramírez Slater MD [facility] [place] [address] PCP - General 07/05/19 documented as of this encounter
--- OUTSIDE RECORDS SUMMARY | 2024-11-22 07:56 | XMS_ITS | Encounter Summary ---
Author Organization [facility] Address [address] [place] [address] Phone Care Team Providers Care Director Of Kids Name Role Phone Ramírez Slater MD Primary Care Provider [phone]- [phone] Reason for Visit * Reason Comments Med Change Request Encounter Details Date Type Department Care Team (Late st Contact Info) Description 12/25/2021 Refill [facility] [address] [place] [address] Magdy Tsai DO [address] [place] [address] Essential hypertension; Myasthenia gravis, not otherwise specified (HCC) Social History Tobacco Use Types Packs/Day Years [...] Encounters Date Type Department Care Team (Late st Contact Info) Description 03/15/2025 1:30 PM EDT Office Visit [facility] [address] [place] [address] Magdy Tsai DO [address] [place] [address] documented as of this encounter Visit Diagnoses Diagnosis Essential hypertension Myasthenia gravis, not otherwise specified (HCC) documented in this encounter Care Teams Director Of Kids Relationship Specialty Start Date End Date Ramírez Slater MD [address] [place] [address] PCP - General 07/05/19 documented as of this encounter
--- OUTSIDE RECORDS SUMMARY | 2024-11-22 07:56 | XMS_ITS | Clinical Summary ---
Author Organization [facility], Address [address] [place] [address] Phone Care Team Providers Care Canvas Marker Name Role Phone Ramírez Slater MD Primary Care Provider [phone]- [phone] Allergies Active Allergy Reactions Criticality Noted Date Comments Morphine Other (see comments) High 01/29/2016 Tachycardia, feeling like coming out of his skin Medications predniSONE (DELTASONE) 1 MG tablet Take 4 mg by mouth 1 (one) time each day Active omeprazole (PriLOSEC) [address] capsule Take 20 mg by mouth 1 (one) time each day Do not crush or chew. Active DULCOLAX 5 MG EC tablet TAKE 2 TABLETS BY MOUTH AT 12:00PM THE DAY BEFORE YOUR PROCEDURE. 3 Active [facility] Purelax 17 GM/SCOOP powder MIX 1 BOTTLE DIRECTED. TAKE THE DAY BEFORE PROCEDURE INSTRUCTED. 3 Active chlorthalidone 25 MG tablet Take 1 tablet (25 mg total) by mouth 1 (one) time each day 90 tablet 3 4 Active amLODIPine-carly zepril (LOTREL) 10-40 MG per capsule TAKE 1 CAPSULE BY MOUTH EVERY DAY 90 capsule 2 4 Active Active Problems Problem Noted Date Diagnosed Date Obesity 03/27/2023 COVID-19 viral pneumonia 12/28/2020 Essential hypertension Hernandez's anemia Dyslipidemia Myasthenia gravis Microcytic anemia Impaired fasting glucose Immunizations Name Administration Dates Next Due Influenza Split High Dose Preservative Free IM 0 05/30/2016,06/30/2015 Influenza, Unspecified 08/06/2018 Family History Medical History Relation Comments Heart disease Father Hypertension Father Anemia Mother Hernandez Dementia Mother Anemia Sibling Hernandez Relation Status Comments Father Mother Sibling Social History Tobacco Use Types Packs/Day Years [...] on file Sexual Orientation Not on file Last Filed Vital Signs Vital Sign Reading Time Taken Comments Blood Pressure 136/78 03/09/2024 1:45 PM EDT Pulse 72 03/09/2024 1:45 PM EDT Temperature - - Respiratory Rate 22 12/07/2017 12:00 PM EDT Oxygen Saturation - - Inhaled Oxygen Concentration - - Weight 113 kg (250 lb) 03/27/2023 4:10 PM EDT Height 177.8 cm (5' 10 ) 03/27/2023 4:10 PM EDT Body Mass Index 35.87 03/27/2023 4:10 PM EDT Plan of Treatment Upcoming Encounters Date Type Department Care Team (Late st Contact Info) Description 03/15/2025 1:30 PM EDT Office Visit [facility] [address] [place] [address] Magdy Tsai DO [address] [place] [id number] Health Maintenance Due Date Last Done Comments Colorectal Cancer Screening: Annual FOBT 2002 Colorectal Cancer Screening: Colonoscopy 2002 Colorectal Cancer Screening: Sigmoidoscopy 2002 Pneumococcal Vaccine: 65+ Years (1 of 1 - PCV) 2018 Influenza Vaccine (#1) 2024 8, 05/30/2016, 06/30/2015 Hepatitis B Vaccine Aged Out No longe r eligible based on patient's age to complete this topic Insurance MEDICARE [facility] Care Teams Canvas Marker Relationship Specialty Start Date End Date Ramírez Slater MD [address] [place] [address] PCP - General 07/05/19
--- OUTSIDE RECORDS SUMMARY | 2024-11-22 07:56 | XMS_ITS | Clinical Summary ---
Author Organization [facility] it Address [address] [place] [address] Care Team Providers Care Ordnance Keeper Name Role Phone Unavailable Primary Care Provider Unavailabl e Social History Tobacco Use Types Packs/Day Years Used Date Smoking Tobacco: Never Assessed Sex and Gender Information Value Date Recorded Sex Assigned at Not on file Legal Sex Male 3:53 AM EST Gender Identity Not on file Sexual Orientation Not on file Plan of Treatment Health Maintenance Due Date Last Done Comments DTaP,Tdap,and Td Vaccines (1 - Tdap) 1972 Pneumococcal Vaccine: 50+ Ye ars (1 of 1 - PCV) 2003 Zoster Vaccines (1 of 2) 2003 COVID-19 Vaccine ( - 2023-2 5 season) 2024 Influenza Vaccine (#1) 2024 RSV Immunization Patients 60 + Years Old (1 - 1-dose 75+ series) 2028 HIB Vaccines Aged Out No longer eligi ble based on patient's age to complete this topic HPV Vaccines Aged Out No longer eligi ble based on patient's age to complete this topic Hepatitis A Vaccines Aged Out No long er eligible based on patient's age to complete this topic Hepatitis B Vaccines Aged Out No long er eligible based on patient's age to complete this topic IPV Vaccines Aged Out No longer eligi ble based on patient's age to complete this topic MMR Vaccines Aged Out No longer eligi ble based on patient's age to complete this topic Meningococcal ACWY Vaccine Aged Out N o longer eligible based on patient's age to complete this topic Meningococcal B Vacine Aged Out No lo nger eligible based on patient's age to complete this topic RSV Immunization Patients Un mine 20 months Aged Out No longer eligible b ased on patient's age to complete this topic Varicella Vaccines Aged Out No longer eligible based on patient's age to complete this topic Advance Directives Documents on File Type Date Recorded 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
[2024-11-22 08:03] VITALS: BP 132/70; PULSE 65; RESP 16; TEMP 36.6; O2SAT 98; BMI 32.1
--- NOTE | 2024-11-22 08:03 | A.OFFPC_ITS ---
Vital Signs 11/22/24 08:03 Height 6 ft Weight 237 lb BMI 32.1 BP 132/70 Blood Pressure Location Rt brachial Position Sitting Respiration 16 Pulse 65 Pulse Source Pulse Oximeter Temp 97.8 F Temp Source Oral Pulse Oximetry (%) 98 Oxygen Delivery Method Room Air Intake Visit Reasons: 4 months follow up Intake Note: Pt is here today for his 4mo. f/u Allergies morphine Adverse Reaction (Unknown, Verified 11/22/24 08:39) stomach upset Medication List - Last Reconciled 11/22/24 by Janice Slater MD amlodipine-benazepril 5-20 mg 1 cap PO DAILY calcium carbonate-vitamin D3 600 mg-5 mcg (200 unit) 1 tab PO BID chlorthalidone 25 mg PO DAILY metformin ER 500 mg PO BID omeprazole 20 mg PO QAM prednisone 2 mg PO QAM rosuvastatin 5 mg PO 3XW 3 months Tobacco use date assessed: 11/22/24 Fall risk assessment: No Falls in past year Last assessed Fall Risk: 11/22/24 Dental Screening Dental Screen Date: 11/22/24 Did you have a dental visit in the last 12 months?: Yes Did you have a dental problem in the last 6 months where you did not have access to dental care?: No Was dental information given to patient?: Patient has dentist HPI 4 months follow up HPI Details 69-year-old male with history of hyperuricemia with history of gout, has hypertension, myasthenia gravies, history of bronchial carcinoid tumors, osteoarthritis of knees and Hernandez anemia , dyslipidemia and type 2 diabetes mellitus , here today for follow-up on his lipids and glucose levels. He admits to not taking his metformin ER twice a day frequently misses his a.m. dose, but has been taking his rosuvastatin 5 mg 3 times a week. He states that he is always on the go, but does not do any formal exercise, and states that he has n ot been fully compliant with his recommended diet. His hemoglobin A1c did go down% in the last 3 months, and fasting lipids have improved, with LDL cholesterol less than 100 but HDL cholesterol also low below 40, triglycerides still slightly elevated but not as much as compared to 3 months ago. He is up-to-date with his diabetes retinopathy screening, goes to [facility], states that he was last seen this year. Copy of report requested He missed his last appointment [place] [facility] [place] on his myasthenia gravis, has another appointment scheduled for March 2025. 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 Osteoarthritis of knees, bilateral Hernandez anemia Lumbago with sciatica, left side Surgical History History of esophagogastroduodenoscopy (EGD) Hx of colonoscopy H/O thymectomy History of appendectomy Family History Mother Hernandez anemia Father Essential hypertension Social History Housing: House Alcohol intake: current Alcohol intake frequency: holidays/special occasions only Patient Tobacco Use Status: Never used Tobacco e-Cigarette/Vaping Use: Never Used service: No Current occupational status: employed Cognitive needs: No Hearing needs: No Vision needs: No Questionnaire PHQ-9 Over the last 2 weeks, how often have you been bothered by any of the following problems? 1. Little interest or pleasure in doing things: not at all 2. Feeling down, depressed, or hopeless: not at all 3. Trouble falling or staying asleep, or sleeping too much: not at all 4. Feeling tired or having little energy: not at all 5. Poor appetite or overeating: not at all 6. Feeling bad about yourself - or that you are a failure or have let yourself or your family down: not at all 7. Trouble concentrating on things, such as reading the newspaper or watching television: not at all 8. Moving or speaking so slowly that other people could have noticed. Or the opposite - being so fidgety or restless that you have been moving around a lot more than usual: not at all 9. Thoughts that you would be better off or of hurting yourself in some way: not at all Total score: 0 Depression Screening Interpretation: Negative Depression Screening Done: Yes 91111 - PHQ-9 Billing: Yes Source: Developed by Drs. Gunnar Jordan, Vandana Jerry, Marvin Natarajan and colleagues, with an educational randall from [employer]. Thrive Questionnaire Date Thrive assessed: 11/22/24 I am a: Patient What is your living situation today?: I have a steady place to live Within the past 12 months, did the food you bought not last and you didn't have the money to get more?: Never true Within the past 12 months, did you worry whether your food would run out before you got money to buy more?: Never true Do you have trouble paying for medicines?: No Do you have trouble getting transportation to medical appointments?: No Do you have trouble paying your heating and electricity bill?: No Do you have trouble taking care of your child, family member or friend?: No Do you have trouble with day-to-day activities such as bathing, preparing meals, shopping, managing finances, etc.?: No Are you currently unemployed and looking for a job?: No Are you interested in more education?: No Please select the resources that you would like help with: None Currently or been in a relationship where the following occur: No concerns reported THRIVE Score: 0 AUDIT C Alcohol Use Questionnaire (AUDIT-C) 1. How often do you have a drink containing alcohol?: 2-3 times a week 2. How many drinks containing alcohol do you have on a typical day when you are drinking?: 3 or 4 3. How often do you have six or more drinks on one occasion?: Less than monthly Total Score: 5 JOSE-7 AMB Questionnaire JOSE-7 Date JOSE - 7 assessed: 11/22/24 Feeling nervous, anxious, or on edge: 0 = Not at all Not being able to stop or control worryin = Not at all Worrying too much about different things: 0 = Not at all Trouble relaxin = Not at all Being so restless that it is hard to sit still: 0 = Not at all Becoming easily annoyed or irritable: 0 = Not at all Feeling afraid as if something awful might happen: 0 = Not at all Total JOSE-7 score (0-4 normal; 5-9 mild; 10-14 moderate; 15-21 severe): 0 Source: Developed by Drs. Gunnar Jordan, Vandana Jerry, Marvin Natarajan and colleagues, with an educational randall from [employer]. JOSE-7 Assessment Billing JOSE-7 Assessment Tool: JOSE-7 Assessment 35376 Review of Systems Const Denies body aches, Denies fatigue, Denies fever(s), Denies headache(s) and Denies weakness Eyes Details: Goes to [facility] for his diabetes retinopathy and routine eye exam Denies change in vision ENT Denies dizziness, Denies headache(s), Denies nasal congestion, Denies nasal discharge and Denies sore throat Card Denies chest pain, Denies lightheadedness, Denies palpitations and Denies dyspnea Resp Denies chest congestion, Denies cough, Denies dyspnea and Denies wheezing GI Denies abdominal pain, Denies change in bowel habits and Denies heartburn Denies dysuria, Denies urinary frequency and Denies urinary urgency Musc Reports no additional complaints Neuro Denies dizziness, Denies headache(s) and Denies weakness Psych Reports no additional complaints Endo Denies fatigue, Denies polydipsia, Denies polyuria and Denies palpitations Oz/Lymph Denies easy bruising Aller/Immun Denies wheezing Physical exam (Primary Care) Vital Signs: Last Vital Signs Temp 97.8 F 11/22/24 08:03 Pulse 65 11/22/24 08:03 Resp 16 11/22/24 08:03 BP 132/70 11/22/24 08:03 Pulse Ox 98 11/22/24 08:03 Oxygen Delivery Method Room Air 11/22/24 08:03 BMI result Body Mass Index 32.1 BMI Assessment/Plan discussion: High BMI High, discussed plan: lifestyle, weight reduction, dietary and physical activity Tobacco/Smoking Status: Tobacco use Status Tobacco use date assessed 11/22/24 11/22/24 08:07 Patient Tobacco Use Status Never used Tobacco 11/22/24 08:07 e-Cigarette/Vaping Use Never Used 11/22/24 08:07 PHQ-9: PHQ-9 Score PHQ-9: Total score 0 11/22/24 08:40 Depression Screening Interpretation: Negative Thrive Assessment: Date of Thrive Assessment Date Thrive assessed 11/22/24 11/22/24 08:07 Currently or been in a relationship where the following occur: No concerns reported Const General: cooperative, comfortable and no acute distress Nutritional Appearance: obese Orientation/consciousness: patient oriented x3 HENMT Mouth: Normal oral and palatal mucosa present, oropharynx normal and moist mucous membranes Throat: Yes posterior oropharynx normal Eyes Pupils: Equal, round and reactive pupils present Neck Neck: Yes full ROM, Yes no lymphadenopathy and Yes supple Resp Effort & Inspection: normal respiratory effort and able to speak in complete sentences Auscultation: clear to auscultation bilaterally Cardio Rate: regular rate Rhythm: regular rhythm Heart sounds: S1 normal heart sound present and S2 normal heart sound present GI Inspection: Yes obesity Palpation (GI): Soft to palpation, nontender, no guarding and no masses Auscultation: normal bowel sounds Back/Spine/Pelvis Back: No back tenderness Neuro General: patient oriented x3, tone normal, moves all extremities, Normal light touch and pain sensation and no focal motor deficits Cranial nerves: Yes Equal, round and reactive pupils present Cognition (Neuro): normal cognition Motor exam (neuro): 5/5 motor strength present throughout Extrem Other: erythematous diffuse swelling over the dorsal lateral aspect of right foot nontender to palpation normal range of motion of right ankle joint Psych Appearance: grossly normal and well kempt Mental Status: mental status grossly normal Speech and movement: Normal speech and movement present Affect: normal affect Results Reviewed Results Reviewed: Name: Lui Arteaga Age/Sex: 69/M : 1955 Unit#: [id number] Attend Dr: Janice Slater MD Re11/21/24 Status: DEP [facility]: SPEC : [id number] JONY: 11/21/24 STATUS: COMP REQ : [id number] RECD: 11/21/[address]: Janice Slater MD COMP: 11/21/24 ENTERED: 11/21/[address]: ORDERED: Met Prof Fast, AST, ALT, CK Total, Lipid Panel Test Result Flag Reference Sodium 142 135-145 mmol/L Potassium 3.8 3.3-5.1 mmol/L CL 107 96-108 mmol/L CO2 26 22-29 mmol/L Gap 13 12-20 BUN 15 9-16 mg/dL Creat 0.75 0.5-1.4 mg/dL eGFR > 60 Chronic Kidney Disease: Estimated GFR < 60 mL/min/1.73m2 Severe Kidney Disease: Estimated GFR < 15 mL/min/1.73m2 FBS 169 H 60-99 mg/dL A fasting glucose of 126 mg/dl or greater on more than one occasion is considered diagnostic of diabetes. CA 9.6 8.4-10.2 mg/dL AST (GOT) 29 5-37 U/L ALT (GPT) 39 0-40 U/L CK Total 38 38-174 U/L Triglyceride 186 H <150 mg/dL Desirable Triglyceride: less than 150 mg/dL Borderline High Triglyceride 150-199 mg/dL High Triglyceride: 200-499 mg/dL Very High Triglyceride: greater than or equal to 5OO mg/dL Cholesterol 171 <200 mg/dL Desirable Cholesterol: less than 200 mg/dL Borderline High Cholesterol: 200-239 mg/dL High Cholesterol: greater than 239 mg/dL LDL Calculated 95 <100 mg/dL Desirable LDL: less than 100 mg/dL Near Optimal/Above Optimal LDL: 110-129 mg/dL Borderline High LDL: 130-159 mg/dL High LDL: 160-189 mg/dL Very High LDL: greater than or equal to 190 mg/dL HDL 39 L >40 mg/dL Desirable HDL: greater than 40 mg/dL Note: This HDL assay may give artificially low results in patients with liver disease. Coding Level of Care Code Est Pt Level 4 (93621) Complex EM visit Add On G2211 Diagnoses Mixed dyslipidemia E78.2 Type 2 diabetes mellitus with hyperglycemia, without long-term current use of insulin E11.65 Diabetes mellitus type: type 2 Diabetes mellitus terminal supervisor insulin use: without longterm use Hypertension, essential I10 Myasthenia gravis G70.00 Additional Codes PHQ-9 - 67522 - PHQ-9 Billing: Yes ([id number]) JOSE-7 Assessment Billing - JOSE-7 Assessment Tool: JOSE-7 Assessment 50655 ([id number]) Assessment & Plan Assessment & Plan (1) Mixed dyslipidemia: Code(s): E78.2 - Mixed hyperlipidemia Category: Medical Plan: Reviewed recent fasting lipid profile with patient with improvement in trigly ceride level and LDL cholesterol, total cholesterol levels now within normal limits. HDL cholesterol however still low. . Continue rosuvastatin 5 mg 3 times a week , in addition to adherence to low-cholesterol diet and regular exercise, at least 30 minutes 3 to 4 times a week. Advised patient to make healthy food choices, eat more fruits, vegetables, whole grains, wild caught fish and low-fat dairy. Limit amount of meat and fried or fatty food products, as well as processed foods and fast foods. (2) Diabetes mellitus with hyperglycemia: Code(s): E11.65 - Type 2 diabetes mellitus with hyperglycemia Category: Medical Qualifiers: Diabetes mellitus type: type 2 Diabetes mellitus terminal supervisor insulin use: without longterm use Qualified Code(s): E11.65 - Type 2 diabetes mellitus with hyperglycemia Plan: Better control of diabetes mellitus noted with hemoglobin A1c now at 7.2%. Reinforced importance of compliance with taking medication as directed. Continue with metformin ER 500 mg 1 tablet twice a day with meals. Up-to-date with his diabetes retinopathy screening, goes to [facility], seen this year, copy of results requested. Patient declines getting any vaccines (3) Hypertension, essential: Code(s): I10 - Essential (primary) hypertension Category: Medical Plan: Blood pressure at goal of less than 130/80. Continue with current medication. Reinforced importance of following a low sodium diet, getting regular exercise, and lowering stress levels. (4) Myasthenia gravis: Code(s): G70.00 - Myasthenia gravis without (acute) exacerbation Category: Medical Plan: Has an appointment for follow-up with his neurologist in [place] in March 2025
== END 2024-11-22 08:46 | disposition home or self-care (01) ==
LOC: HO.HMCC 07:50
PROVIDERS: PCP Internal Medicine; Visit Provider Internal Medicine
DX: E78.2 Mixed hyperlipidemia (principal); E11.65 Type 2 diabetes mellitus with hyperglycemia; I10 Essential (primary) hypertension; G70.00 Myasthenia gravis without (acute) exacerbation

== ENCOUNTER → 2024-11-22 07:49 | Outpatient (BNVA) | payer MEDICARE, SELFPAY | PROVIDERS: PCP Internal Medicine; Visit Provider Internal Medicine | DX: E78.2 Mixed hyperlipidemia (principal); E11.65 Type 2 diabetes mellitus with hyperglycemia; I10 Essential (primary) hypertension; G47.00 Insomnia, unspecified | CPT/HCPCS: 96127; 99212 ==

== ENCOUNTER 2025-03-29 06:08 | Outpatient (REF) | payer MEDICARE, SELFPAY ==
[2025-03-29 10:32] LABS: Anion Gap 13 (12-20); Blood Urea Nitrogen 10 mg/dL (9-16); Calcium 9.0 mg/dL (8.4-10.2); Carbon Dioxide 24 mmol/L (22-29); Chloride 108 mmol/L (96-108); Estimated Glomerular Filt Rate > 60; Potassium 3.7 mmol/L (3.3-5.1); Sodium 141 mmol/L (135-145)
[2025-03-29 10:53] LABS: Appearance Urine Turbid; Glucose Urine UA Negative (Negative); PH 5.5 (5.0-9.0); Specific Gravity - Urine 1.020 (1.005-1.025); UMIC TRIGGER UACC YES
[2025-03-29 11:05] LABS: UACC Culture Trigger YES
== END 2025-03-29 06:09 | disposition home or self-care (01) ==
LOC: HO.HMGCLDS 06:08
PROVIDERS: PCP Internal Medicine; Visit Provider Internal Medicine
DX: R39.12 Poor urinary stream (principal); R39.198 Other difficulties with micturition
CPT/HCPCS: 36415; 80048; 81001; 87086

== ENCOUNTER 2025-07-18 06:03 | Outpatient (REF) | payer MEDICARE, SELFPAY ==
[2025-07-18 11:20] LABS: Alanine Aminotransferase 34 U/L (0-40); Anion Gap 11 (12-20); Aspartate Amino Transferase 25 U/L (5-37); Blood Urea Nitrogen 15 mg/dL (9-16); Calcium 9.5 mg/dL (8.4-10.2); Carbon Dioxide 26 mmol/L (22-29); Chloride 108 mmol/L (96-108); Cholesterol 173 mg/dL (<200); Estimated Glomerular Filt Rate > 60; HDL Cholesterol 42 mg/dL (>40); Potassium 4.0 mmol/L (3.3-5.1); Sodium 141 mmol/L (135-145); Triglycerides 134 mg/dL (<150)
[2025-07-18 11:33] LABS: PSA,Total (Free>4and<10) 0.85 ng/mL (0.00-4.00)
== END 2025-07-18 06:04 | disposition home or self-care (01) ==
LOC: HO.HMGCLDS 06:03
PROVIDERS: PCP Internal Medicine; Visit Provider Internal Medicine
DX: Z12.5 Encounter for screening for malignant neoplasm of prostate (principal); I10 Essential (primary) hypertension; E11.65 Type 2 diabetes mellitus with hyperglycemia; E78.2 Mixed hyperlipidemia
CPT/HCPCS: 36415; 80048; 80061; 83036; 84153; 84450; 84460

== ENCOUNTER 2025-07-25 09:21 | Outpatient (AMB) | payer MEDICARE, SELFPAY ==
--- OUTSIDE RECORDS SUMMARY | 2017-12-10 23:00 | XMS_ITS | Encounter Summary ---
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 Name Role Phone Janice Slater MD Primary Care Provider Reason for Visit * MRI/CAT Scan - Closed Specialty Diagnoses / Procedures Referred By Vik t Referred To Contact Procedures MRI Spine (Bone) Outside (No Interpretation) Sy Barnes MD [address] [place] [id number] Phone: tel: fax: [email or web address] Referral ID Status Reason Start Date Expiration Date Visits Re quested Visits Authorized [id number] Closed 01/18/2018 01/18/2019 1 1 Encounter Details Date Type Department Care Team (Late st Contact Info) Description 12/11/2017 Hospital Encounter [facility] [address] [place] [address] Sy Barnes MD [address] [place] [id number] [email or web address] Social History Tobacco Use Types Packs/Day Years Used Date Smoking Tobacco: Former Cigarettes 2 20 0 01/29/1976 - 01/29/1996 Smokeless Tobacco: Never Alcohol Use Standard Drinks/Week Comments Yes 2 (1 standard drink = 0.6 oz pur e alcohol) Education Answer Date Recorded Are you interested in more education? Not on andrew e 12/26/2022 Are you concerned about learning? Not on file 12/26/2022 No 12/26/2022 No 12/26/2022 Digital Access Answer Date Recorded No 01/26/2023 No 01/26/2023 Reliable internet access at home? Not on file 01/26/2023 Device with a working camera? Not on file Sex and Gender Information Value Date Recorded Sex Assigned at Not on file Legal Sex Male 8:53 AM EDT Gender Identity Not on file Sexual Orientation Not on file documented as of this encounter Functional Status * Patient is deaf or has serious difficulty with hearing Answer Date of Assessment Author No 05/04/2016 11:04 AM Janet Gamez MD * Patient is blind or has serious difficulty with seeing, even when wearing glasses Answer Date of Assessment Author No 05/04/2016 11:04 AM Janet Gamez MD * Patient has serious difficulty walking or climbing stairs (5yr old or older) Answer Date of Assessment Author No 05/04/2016 11:04 AM Janet Gamez MD * Patient has serious difficulty dressing or bathing (5yr old or older) Answer Date of Assessment Author No 05/04/2016 11:04 AM Janet Gamez MD * Patient has serious difficulty doing errands alone such as visiting a doctor???s office or shopping, due to physical, mental, or emotional condition (15 years old or older) Answer Date of Assessment Author No 05/04/2016 11:04 AM Janet Gamez MD documented as of this encounter Mental Status * Patient has serious difficulty concentrating, remembering, or making decisions due to physical, mental, or emotional condition Answer Entry Date Author No 05/04/2016 11:04 AM Janet Gamez MD documented in this encounter Plan of Treatment Upcoming Encounters Date Type Department Care Team ([facility] st Contact Info) Description 04/30/2026 1:00 PM EDT Office Visit [facility] Neuromuscular [facility] [address] [place] [phone] Cassie Campa, HYDROLOGIC MODELER, DNP [address] [place] [address] [email or web address] documented as of this encounter Procedures Procedure Name Priority Date/Time Associated Diagnosis Comments MRI SPINE MUSCULOSKELETAL FOCUS OUTSIDE (NO INTERPRETATION) Routine 12/11/2017 12:00 AM EDT documented in this encounter Results * MRI Spine (Bone) Outside (No Interpretation) (12/11/2017 12:00 AM EDT) Narrative [facility] IMG INTERFACES - 01/18/2018 10:27 AM EDT This study is for PACS storage only and not for interpretation. us Sy Barnes MD IMG OUTSIDE IMAGING W/OUT I NTERPRETATION Final Result [facility] IMG INTERFACES documented in this encounter Visit Diagnoses Not on filedocumented in this encounter Care Teams Cigarette Machine Filler Relationship Specialty Start Date End Date Janice Slater MD [facility] [place] [address] PCP - General Internal Medicine 10/31/15 documented as of this encounter Additional Source Comments The information contained in this document represents components of the legal health record. It is not the complete legal health record.[facility]
[2025-07-25 09:24] VITALS: BP 138/60; PULSE 65; RESP 16; TEMP 36.4; O2SAT 97; BMI 32.4
--- NOTE | 2025-07-25 09:24 | A.OFFVIS_ITS ---
Intake Vital Signs 07/25/25 09:24 Height 6 ft Weight 239 lb BMI 32.4 BP 138/60 Blood Pressure Location Lt brachial Position Sitting Respiration 16 Pulse 65 Pulse Source Pulse Oximeter Temp 97.5 F Temp Source Oral Pulse Oximetry (%) 97 Oxygen Delivery Method Room Air Intake Visit Reasons: SWV G0439 Intake Note: Pt is here today for his SWV Ammonium Sulfate Operator Required: No Allergies morphine Adverse Reaction (Unknown, Verified 07/25/25 09:49) stomach upset Medication List - Last Reconciled 07/25/25 by Janice Slater MD amlodipine-benazepril 5-20 mg 1 cap PO DAILY calcium carbonate-vitamin D3 600 mg-5 mcg (200 unit) 1 tab PO BID chlorthalidone 25 mg PO DAILY omeprazole 20 mg PO QAM prednisone 2 mg PO QAM rosuvastatin 5 mg PO 3XW 3 months HPI SWV G0439 HPI Details AWV ? 70 year old male with history of gout, hypertension, myasthenia gravies, history of bronchial carcinoid tumors, osteoarthritis of knees and Hernandez anemia , dyslipidemia and type 2 diabetes mellitus presents for his Annual Wellness Visit, initial visit.? Latest fasting labs done 07/18/2025 showed borderline diabetes control with hemoglobin A1c at 7.2% and fasting lipids showed LDL cholesterol at 105 mg/dL, with normal triglycerides, total cholesterol and HDL cholesterol levels. Total PSA also was obtained which came back within normal limits. Up-to-date with his screening colonoscopy done by Dr. Soler in 2022 with removal of a tubular adenoma polyp, repeat due again in 2027. He is up-to-date with his pneumonia vaccine, received Prevnar 20, but declined to get flu, COVID vaccine or shingles vaccine. ? Medical / Social History Reviewed? Past Medical History ?Yes . ? [place] of Care / Care Team list updated ?Yes . ? Surgical/Hospitalization History ?Yes . ? Current Medications (including OTC and supplements) ?Yes . ? Family History ?Yes . ? Tobacco Control form ?Yes . ? AUDIT-C (Alcohol use) form ?Yes . ? Illicit drug use in Social History ?Yes . ? Current diagnosis of depression? ?No ? Appropriate PHQ2/PHQ9 completed ?Yes . ? Data entered by ?Training Representative and reviewed by provider ? Fall Risk ? Fall History? Have you had any falls with injury in the past year? ?No . ? Have you had two or more falls in the past year? ?No . ? Fall Risk Assessment: ?No falls in the past year . ? HRA filled out by the patient, reviewed by Provider and scanned. ?AWV ? Balance? Romberg ?negative . ? Tandem walk ?Yes . ? Walk and Turn ?Yes . ? Rise from sit to stand ?Yes . ?Vision? Corrective lens ?Yes ? Vision screen ? overdue, goes to [facility] ?Hearing? Whisper test ?pass . ?Written Plan?Completed. See Patient Documents.? HPI Comments History of Present Illness Details Latest hemoglobin A1c showed diabetes mellitus not well controlled at 7.2%, and fasting lipids not at goal with an LDL of 105 mg/dL. Patient refusing to any medication for diabetes at present time, admits to being inconsistent with following recommended diet and not getting any regular exercise but stays active at work. He is up-to-date with his Prevnar 20 but does not want to get flu vaccine or shingles vaccination. Overdue to get his diabetes retinopathy screening done, goes to [facility] Medical History Mixed dyslipidemia Diabetes mellitus with hyperglycemia History of adenomatous polyp of colon Drooping eyelid Hyperuricemia History of COVID-19 Myasthenia gravis Elevated cholesterol GERD (gastroesophageal reflux disease) HTN (hypertension) Left wrist tendinitis Encounter for screening for malignant neoplasm of prostate Spondylolisthesis of lumbar region Dyslipidemia Loose right total knee arthroplasty Hiatal hernia with GERD Lumbar disc herniation with radiculopathy Bronchial carcinoid tumors Osteoarthritis of knees, bilateral Hernandez anemia Lumbago with sciatica, left side Surgical History History of esophagogastroduodenoscopy (EGD) Hx of colonoscopy H/O thymectomy History of appendectomy Family History Mother Hernandez anemia Father Essential hypertension Social History Housing: House Alcohol intake: current Alcohol intake frequency: holidays/special occasions only Patient Tobacco Use Status: Never used Tobacco e-Cigarette/Vaping Use: Never Used service: No Current occupational status: employed Cognitive needs: No Hearing needs: No Vision needs: No Questionnaire Medicare Wellness Checkup [age] What gender do you identify with?: male During the past 4 weeks, how much have you been bothered by emotional problems such as feeling anxious, depressed, irritable, sad or downhearted, and blue?: not at all During the past 4 weeks, has your physical & emotional health limited your social activities with family, friends, neighbors, or groups?: moderately During the past 4 weeks, how much bodily pain have you generally had?: moderate pain During the past 4 weeks, was someone available to help you if you needed & wanted help?: yes, as much as I wanted During the past 4 weeks, what was the hardest physical activity you could do for at least 2 minutes?: heavy Can you get to places out of walking distance without help? (For eg., can you travel alone on buses, taxis or drive your car?): Yes Can you go shopping for groceries or clothes without someone's help?: Yes Can you prepare your own meals?: Yes Can you do your housework without help?: Yes Because of any health problems, do you need the help of another person with your personal care needs such as eating, bathing, dressing or getting around the house?: No Can you handle your own money without help?: Yes During the past 4 weeks, how would you rate your health in general?: very good During the past 4 weeks how have things been going for you?: pretty well Are you having difficulties driving your car?: no Do you always fasten your seat belt when you are in a car?: yes, usually During past 4 weeks, have you been bothered by the following: never: Falling or dizzy when standing up, Sexual problems?, Trouble eating well?, Teeth or denture problems?, Problems using the telephone? and Tiredness or fatigue? Have you fallen 2 or more times in the past year?: No Are you afraid of falling?: No Are you a smoker?: no During the past 4 weeks, how many drinks of wine, beer, or other alcoholic beverages did you have?: 1 drink or less per week Do you exercise for about 20 minutes 3 or more times a week?: yes, some of the time Have you been given information to help with the following?: yes: Hazards in your house that might hurt you? and yes: Keeping track of your medications? How often do you have trouble taking medicines the way you have been told to take them?: I always take medicine as prescribed How confident are you that you can control & manage most of your health problems?: very confident What is your race?: White Mini Mental State Exam (MMSE) Orientation What is the (year) (season) (date) (day) (month)?: year (2024), season (Fall), date (07/25/25), day (Thursday) and month () Where are we (state) (county) (town or city) (hospital) (floor)?: state ([facility]), county ([place]), town or city ([place]) and hospital/clinic ([facility]) Score Score: 9 Activity of Daily Living Bathing - sponge bath, tub bath or shower: receives no assistance (gets in/out by self, if usual bathing means Dressing - getting clothes from closets & drawers, including inner/outer garments & fasteners.: gets clothes & gets completely dressed without help Toileting - going to the 'toilet room' for urine/bowel elimination & cleaning self/arranging clothes: goes to toilet room, cleans self, arranges clothes without help Transfer: moves in & out of bed and chair without help (may use support object) Continence: controls urination/bowel movements completely by self Feeding: feeds self without help Total Score: 0 Information obtained from: patient Using telephone: independent Traveling: independent Shopping: independent Preparing meals: independent Housework: independent Taking medicine: independent Managing money: independent PHQ-9 Over the last 2 weeks, how often have you been bothered by any of the following problems? 1. Little interest or pleasure in doing things: not at all 2. Feeling down, depressed, or hopeless: not at all 3. Trouble falling or staying asleep, or sleeping too much: not at all 4. Feeling tired or having little energy: not at all 5. Poor appetite or overeating: not at all 6. Feeling bad about yourself - or that you are a failure or have let yourself or your family down: not at all 7. Trouble concentrating on things, such as reading the newspaper or watching television: not at all 8. Moving or speaking so slowly that other people could have noticed. Or the opposite - being so fidgety or restless that you have been moving around a lot more than usual: not at all 9. Thoughts that you would be better off or of hurting yourself in some way: not at all Total score: 0 Depression Screening Interpretation: Negative Depression Screening Done: Yes 45365 - PHQ-9 Billing: Yes Source: Developed by Alejandro Singhet B.W. Rosalino, Marvin Natarajan and colleagues, with an educational randall from [employer]. Review of Systems Const Denies body aches, Denies fatigue, Denies fever(s), Denies headache(s) and Denies weakness Eyes Details: Goes to [facility] for his diabetes retinopathy and routine eye exam Denies change in vision ENT Denies dizziness, Denies headache(s), Denies nasal congestion, Denies nasal discharge and Denies sore throat Card Denies chest pain, Denies lightheadedness, Denies palpitations and Denies dyspnea Resp Denies chest congestion, Denies cough, Denies dyspnea and Denies wheezing GI Denies abdominal pain, Denies change in bowel habits and Denies heartburn Denies dysuria, Denies urinary frequency and Denies urinary urgency Musc Reports no additional complaints Neuro Denies dizziness, Denies headache(s) and Denies weakness Psych Reports no additional complaints Endo Denies fatigue, Denies polydipsia, Denies polyuria and Denies palpitations Oz/Lymph Denies easy bruising Aller/Immun Denies wheezing Physical Exam Vital Signs: Last Vital Signs Temp 97.5 F 07/25/25 09:24 Pulse 65 07/25/25 09:24 Resp 16 07/25/25 09:24 BP 138/60 07/25/25 09:24 Pulse Ox 97 07/25/25 09:24 Oxygen Delivery Method Room Air 07/25/25 09:24 BMI result Body Mass Index 32.4 Const General: no acute distress and alert Nutritional Appearance: obese Orientation/consciousness: patient oriented x3 Neck Neck: Yes full ROM, Yes no lymphadenopathy and Yes supple Resp Effort & Inspection: normal respiratory effort and able to speak in complete sentences Cardio Rate: regular rate Rhythm: regular rhythm GI Inspection: Yes obesity Palpation (GI): Soft to palpation, nontender, no guarding and no masses Auscultation: normal bowel sounds Skin Wounds: no wounds Nails: yellow and thickened (bilateral great toenail ) Neuro General: patient oriented x3, moves all extremities and no focal motor deficits Cognition (Neuro): normal cognition Assessment & Plan Assessment & Plan (1) Hypertension, essential: Code(s): I10 - Essential (primary) hypertension Plan: Currently on amlodipine-benazepril 5-20 mg daily, chlorthalidone 25 mg daily (2) Myasthenia gravis: Code(s): G70.00 - Myasthenia gravis without (acute) exacerbation Plan: Followed by Neurology, currently on prednisone 2 mg daily (3) Hernandez anemia: Code(s): 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 Plan: Currently asymptomatic (4) Osteoarthritis of knees, bilateral: Code(s): M17.0 - Bilateral primary osteoarthritis of knee Plan: Takes an occasional Tylenol as needed (5) Hiatal hernia with GERD: Code(s): K21.9 - Gastro-esophageal reflux disease without esophagitis; K44.9 - Diaphragmatic hernia without obstruction or gangrene Plan: Currently taking omeprazole 20 mg daily (6) Hyperuricemia: Code(s): E79.0 - Hyperuricemia without signs of inflammatory arthritis and tophaceous disease Plan: No recent flare-ups (7) History of adenomatous polyp of colon: Code(s): Z86.0101 - Personal history of adenomatous and serrated colon polyps Plan: Repeat colonoscopy due again with Dr. Soler in 2027 (8) Diabetes mellitus with hyperglycemia: Code(s): E11.65 - Type 2 diabetes mellitus with hyperglycemia Qualifiers: Diabetes mellitus pillow filler insulin use: without senior living use Diabetes mellitus type: type 2 Qualified Code(s): E11.65 - Type 2 diabetes mellitus with hyperglycemia Plan: Hemoglobin A1c now is at 7.2%. Patient does not want to start any medication at present time. Reinforced importance of adherence to recommended diet and getting regular exercise. Reminded to get yearly eye screening for retinopathy at [facility] (9) Mixed dyslipidemia: Code(s): E78.2 - Mixed hyperlipidemia Plan: Continue on rosuvastatin 5 mg 3 times a week (10) Encounter for subsequent annual wellness visit in Medicare patient: Code(s): Z00.00 - Encounter for general adult medical examination without abnormal findings Plan: Medical wellness checklist reviewed, discussed with patient and updated. Advanced directives are up-to-date. 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, E11.65 - Type 2 diabetes mellitus with hyperglycemia, E78.2 - Mixed hyperlipidemia, E79.0 - Hyperuricemia without signs of inflammatory arthritis and tophaceous disease, G70.00 - Myasthenia gravis without (acute) exacerbation, I10 - Essential (primary) hypertension, K21.9 - Gastro-esophageal reflux disease without esophagitis, K44.9 - Diaphragmatic hernia without obstruction or gangrene, M17.0 - Bilateral primary osteoarthritis of knee, Z00.00 - Encounter for general adult medical examination without abnormal findings, Z86.0101 - Personal history of adenomatous and serrated colon polyps Alanine Aminotransferase 3 Months 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, E11.65 - Type 2 diabetes mellitus with hyperglycemia, E78.2 - Mixed hyperlipidemia, E79.0 - Hyperuricemia without signs of inflammatory arthritis and tophaceous disease, G70.00 - Myasthenia gravis without (acute) exacerbation, I10 - Essential (primary) hypertension, K21.9 - Gastro-esophageal reflux disease without esophagitis, K44.9 - Diaphragmatic hernia without obstruction or gangrene, M17.0 - Bilateral primary osteoarthritis of knee, Z00.00 - Encounter for general adult medical examination without abnormal findings, Z86.0101 - Personal history of adenomatous and serrated colon polyps Hemoglobin A1c 3 Months 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, E11.65 - Type 2 diabetes mellitus with hyperglycemia, E78.2 - Mixed hyperlipidemia, E79.0 - Hyperuricemia without signs of inflammatory arthritis and tophaceous disease, G70.00 - Myasthenia gravis without (acute) exacerbation, I10 - Essential (primary) hypertension, K21.9 - Gastro-esophageal reflux disease without esophagitis, K44.9 - Diaphragmatic hernia without obstruction or gangrene, M17.0 - Bilateral primary osteoarthritis of knee, Z00.00 - Encounter for general adult medical examination without abnormal findings, Z86.0101 - Personal history of a denomatous and serrated colon polyps Lipid Panel 3 Months 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, E11.65 - Type 2 diabetes mellitus with hyperglycemia, E78.2 - Mixed hyperlipidemia, E79.0 - Hyperuricemia without signs of inflammatory arthritis and tophaceous disease, G70.00 - Myasthenia gravis without (acute) exacerbation, I10 - Essential (primary) hypertension, K21.9 - Gastro-esophageal reflux disease without esophagitis, K44.9 - Diaphragmatic hernia without obstruction or gangrene, M17.0 - Bilateral primary osteoarthritis of knee, Z00.00 - Encounter for general adult medical exa mination without abnormal findings, Z86.0101 - Personal history of adenomatous and serrated colon polyps Vitamin D 25-OH Total 3 Months 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, E11.65 - Type 2 diabetes mellitus with hyperglycemia, E78.2 - Mixed hyperlipidemia, E79.0 - Hyperuricemia without signs of inflammatory arthritis and tophaceous disease, G70.00 - Myasthenia gravis without (acute) exacerbation, I10 - Essential (primary) hypertension, K21.9 - Gastro-esophageal reflux disease without esophagitis, K44.9 - Diaphragmatic hernia without obstruction or gangrene, M17.0 - Bilateral primary osteoarthritis of knee, Z00.00 - Encounter for general adult medical examination without abnormal findings, Z86.0101 - Personal history of adenomatous and serrated colon polyps Uric Acid 3 Months 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, E11.65 - Type 2 diabetes mellitus with hyperglycemia, E78.2 - Mixed hyperlipidemia, E79.0 - Hyperuricemia without signs of inflammatory arthritis and tophaceous disease, G70.00 - Myasthenia gravis without (acute) exacerbation, I10 - Essential (primary) hypertension, K21.9 - Gastro-esophageal reflux disease without esophagitis, K44.9 - Diaphrag matic hernia without obstruction or gangrene, M17.0 - Bilateral primary osteoarthritis of knee, Z00.00 - Encounter for general adult medical examination without abnormal findings, Z86.0101 - Personal history of adenomatous and serrated colon polyps Basic Metabolic Panel Fasting 3 Months 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, E11.65 - Type 2 diabetes mellitus with hyperglycemia, E78.2 - Mixed hyperlipidemia, E79.0 - Hyperuricemia without signs of inflammatory arthritis and tophaceous disease, G70.00 - Myasthenia gravis without (acute) exacerbation, I10 - Essential (primary) hypertension, K21.9 - Gastro-esophageal reflux disease without esophagitis, K44.9 - Diaphragmatic hernia without obstruction or gangrene, M17.0 - Bilateral primary osteoarthritis of knee, Z00.00 - Encounter for general adult medical examination without abnormal findings, Z86.0101 - Personal history of adenomatous and serrated colon polyps Aspartate Amino Transferase 3 Months 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, E11.65 - Type 2 diabetes mellitus with hyperglycemia, E78.2 - Mixed hyperlipidemia, E79.0 - Hyperuricemia without signs of inflammatory arthritis and tophaceous disease, G70.00 - Myasthenia gravis without (acute) exacerbation, I10 - Essential (primary) hypertension, K21.9 - Gastro-esophageal reflux disease without esophagitis, K44.9 - Diaphragmatic hernia without obstruction or gangrene, M17.0 - Bilateral primary osteoarthritis of knee, Z00.00 - Encounter for general adult medical examination without abnormal findings, Z86.0101 - Personal history of adenomatous and serrated colon polyps Quality Reporting (2019) Depression/Bipolar (159/160/161/177) PHQ-9: Total score: 0 Coding Level of Care Code Medicare Subsequent (G0439) Est Pt Level 4 (06847) Diagnoses Hypertension, essential I10 Myasthenia gravis G70.00 Hernandez anemia D56.1 Osteoarthritis of knees, bilateral M17.0 Hiatal hernia with GERD K21.9; K44.9 Hyperuricemia E79.0 History of adenomatous polyp of colon Z86.0101 Type 2 diabetes mellitus with hyperglycemia, without long-term current use of insulin E11.65 Diabetes mellitus pillow filler insulin use: without senior living use Diabetes mellitus type: type 2 Mixed dyslipidemia E78.2 Encounter for subsequent annual wellness visit in Medicare patient Z00.00 CPT Codes Advance Care Planning - Advance Care Planning discussion: On file, no changes ([id number]) Advance Care Planning - Time spent: 1-15 minutes, on File ([id number]) Additional Codes PHQ-9 - 91402 - PHQ-9 Billing: Yes ([id number]) Advance Care Planning Advance Care Planning discussion: On file, no changes Date of discussion: 07/25/25 Who was present: Patient Forms completed: Health Care Proxy and MOLST Time spent: 1-15 minutes, on File Actual minutes spent: 1
--- OUTSIDE RECORDS SUMMARY | 2025-07-25 10:36 | XMS_ITS | Encounter Summary ---
Author Organization [facility] Address [facility] [address] [place] [address] Phone Care Team Providers Care Fruit Coordinator Name Role Phone Janice Slater MD Primary Care Provider Jamaal Gamboa MD Unavailable [phone] Encounter Details Date Type Department Care Team (Late Contact Info) Description 01/31/2016 Procedure Pass [facility] MRI, [place] [address] [facility] [facility] [place] [address] Social History Tobacco Use Types Packs/Day Years Used Date Smoking Tobacco: Former Cigarettes 2 20 0 01/29/1976 - 01/29/1996 Smokeless Tobacco: Never Alcohol Use Standard Drinks/Week Comments Not Asked 0 (1 standard drink = 0.6 oz pur e alcohol) Sex and Gender Information Value Date Recorded Sex Assigned at Not on file Legal Sex Male 8:53 AM EDT Gender Identity Not on file Sexual Orientation Not on file documented as of this encounter Plan of Treatment Upcoming Encounters Date Type Department Care Team (Late Contact Info) Description 04/30/2026 1:00 PM EDT Office Visit [facility] Neuromuscular Service [address] [facility] [place] [address] Cassie Campa, TRANSITION SPECIALIST, DNP [address] [facility] [address] [place] [address] [email or web address] documented as of this encounter Visit Diagnoses Not on filedocumented in this encounter Care Teams Fruit Coordinator Relationship Specialty Start Date End Date Janice Slater MD [address] [place] [address] [place] [address] PCP - General Internal Medicine 10/31/15 Jamaal Gamboa MD [facility] [place] [address] [email or web address] Cardiothoracic Surgery 06/11/21 documented as of this encounter Additional Source Comments The information contained in this document represents components of the legal health record. It is not the complete legal health record.[facility]
--- OUTSIDE RECORDS SUMMARY | 2025-07-25 10:36 | XMS_ITS | Encounter Summary ---
Author Organization [facility] Address [address] [place] [address] Phone Care Team Providers Care Cnc Cutting Operator Name Role Phone Janice Slater MD Primary Care Provider Jamaal Gamboa MD Unavailable [phone] Encounter Details Date Type Department Care Team (Late st Contact Info) Description 11/11/2018 Documentation [facility] [address] [facility], [address] [place] [address] Leanna Becker MA Social History Tobacco Use Types Packs/Day Years [...] of Assessment Author No 05/04/2016 11:04 AM MARIBELT Janet Stevens MD * Patient has serious difficulty doing [...] Janet Gamez MD documented in this encounter Progress Notes * Leanna Becker MA - 11/11/2018 8:37 AM EDT Spoke to mariangel will grain picker script documented in this encounter Plan of Treatment Upcoming Encounters Date Type Department Care Team (Late st Contact Info) Description 04/30/2026 1:00 PM EDT Office Visit [facility] Neuromuscular Service [address] [facility] [place] [address] Cassie Campa, BEST WORKER, DNP [address] [address] [email or web address] documented as of this encounter Visit Diagnoses Not on filedocumented in this encounter Care Teams Cnc Cutting Operator Relationship Specialty Start Date End Date Janice Slater MD [address] [facility] [place] [address] PCP - General Internal Medicine 10/31/15 Jamaal Gamboa MD [address] [place] [address] [email or web address] Cardiothoracic Surgery 06/11/21 documented as of this encounter Additional Source Comments The information contained in this document represents components of the legal health record. It is not the complete legal health record.[facility]
--- OUTSIDE RECORDS SUMMARY | 2025-07-25 10:36 | XMS_ITS | Encounter Summary ---
Author Organization [facility] Address [address] [facility] [address] [place] [address] Phone Care Team Providers Care Chief Engineer'S Helper Name Role Phone Janice Slater MD Primary Care Provider Jamaal Gamboa MD Unavailable [phone] Encounter Details Date Type Department Care Team (Late Contact Info) Description 01/30/2016 Telephone [facility] Thoracic Surgery at [facility] [address] [address] Jamaal Gamboa MD [address] [place] [address] [phone] [email or web address] Social History Tobacco Use Types Packs/Day Years [...] 1:00 PM EDT Office Visit [facility] Neuromuscular Service [address] [facility], 8th [place] [address] Cassie Campa, FIELD CROP GROWER, DNP [address] [facility] [address] [place] [address] [email or web address] documented as of this encounter Visit Diagnoses Not on filedocumented in this encounter Care Teams Chief Engineer'S Helper Relationship Specialty Start Date End Date Janice Slater MD [facility] [address] PCP - General Internal Medicine 10/31/15 Jamaal Gamboa MD [facility] [place] [address] [email or web address] Cardiothoracic Surgery 06/11/21 documented as of this encounter Additional Source Comments The information contained in this document represents components of the legal health record. It is not the complete legal health record.[facility]
--- OUTSIDE RECORDS SUMMARY | 2025-07-25 10:36 | XMS_ITS | Encounter Summary ---
Author Organization [facility] Address [facility] [address] [facility] [address] [place] [address] Phone Care Team Providers Care Horticultural Technical Officer Name Role Phone Janice Slater MD Primary Care Provider Jamaal Gamboa MD Unavailable [phone] Encounter Details Date Type Department Care Team (Late st Contact Info) Description 12/15/2018 Procedure Pass [facility] PERIOPERATIVE DEPT 2013 [place] [address] Social History Tobacco Use Types Packs/Day Years [...] Description 04/30/2026 1:00 PM EDT Office [place] [facility] [place] [address] [facility], 8th [place] [address] Cassie Campa, AMERICAN HISTORY TEACHER, DNP [address] [facility] [address] [place] [address] [email or web address] documented as of this encounter Visit Diagnoses Not on filedocumented in this encounter Care Teams Horticultural Technical Officer Relationship Specialty Start Date End Date Janice Slater MD [address] [place] [address] [place] [address] PCP - General Internal Medicine 10/31/15 Jamaal Gamboa MD [address] [place] [address] [place] [address] [email or web address] Cardiothoracic Surgery 06/11/21 documented as of this encounter Additional Source Comments The information contained in this document represents components of the legal health record. It is not the complete legal health record.[facility]
--- OUTSIDE RECORDS SUMMARY | 2025-07-25 10:36 | XMS_ITS | Encounter Summary ---
Author Organization [facility] Address [address] [place] [address] Phone Care Team Providers Care Wage And Hour Investigator Name Role Phone Janice Slater MD Primary Care Provider Jamaal Gamboa MD Unavailable [phone] Encounter Details Date Type Department Care Team (Late st Contact Info) Description 01/18/2018 Procedure Pass [facility] [address] [place] [address] Social History Tobacco Use Types Packs/Day Years [...] Description 04/30/2026 1:00 PM EDT Office Visit [facility] [place] [place] [address] [facility] 8th [place] [address] Cassie Campa, PRIZE FIGHTER, DNP [address] [facility] [address] [place] [address] [email or web address] documented as of this encounter Visit Diagnoses Not on filedocumented in this encounter Care Teams Wage And Hour Investigator Relationship Specialty Start Date End Date Janice Slater MD [address] [place] [address] [place] [address] PCP - General Internal Medicine 10/31/15 Jamaal Gamboa MD [address] [place] [address] [place] [address] [email or web address] Cardiothoracic Surgery 06/11/21 documented as of this encounter Additional Source Comments The information contained in this document represents components of the legal health record. It is not the complete legal health record.[facility]
--- OUTSIDE RECORDS SUMMARY | 2025-07-25 10:36 | XMS_ITS | Clinical Summary ---
Author Organization [facility] Address [address] [place] [address] Phone Care Team Providers Care Refrigeration Tech Name Role Phone Janice Slater MD Primary Care Provider Jamaal Gamboa MD Unavailable [phone] Allergies Active Allergy Reactions Criticality Noted Date Comments Morphine Mental Status Change High 01/29/2016 Tachycardia, feeling like coming out of his skin Medications amLODIPine-carly zepril (LOTREL 5-20) 5-20 mg per capsule Take 1 capsule by mouth daily. Active omeprazole (PRILOSEC) 20 MG capsule Take 20 mg by mouth daily. Active calcium carbonate-vitam in D3 625 mg (250 elemental)-125 units Tab Take 2 tablets by mouth 2 (two) times a day with meals. 120 tablet 3 02/02/2016 Active chlorthalidone (HYGROTON) 25 MG tablet Take 25 mg by mouth daily. Active predniSONE (DELTASONE) 1 MG tabletIndicatio ns:Myasthenia Take 3 tablets (3 mg total) by mouth daily with breakfast. 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 Etiology likely anemia of chronic disease vs iron deficiency - f/u iron studies Myasthenia gravis 01/29/2016 Assessment & Plan (01/30/2016 9:11 AM EDT): Diagnosed by neurologist at [facility] based on +Tensilon, ?+AChR. Ongoing symptoms of L ptosis, dysphagia, dysarthria. Underwent EMG/NCS and ?LP at OSH. Was on mestinon 60 mg PO TID, prednisone 20 mg PO BID prior to admission. Dx: - Obtain results of EMG/NCS, LP, Tensilon test, serum tests, clinic notes from [facility] - LASER BEAM CUTTER to assess swallow function - Respiratory mechanics x1 for baseline - serum anti-AChR, anti-Musk, RF, SAMY, TSH - Radiology re-read of chest CT from 10/20/15 to eval for thymoma; if non- diagnostic, then chest CT +IV contrast to r/o thymoma Tx: - Mestinon 60 mg PO QID (before meals and nightly) - Prednisone 50 mg QD - Immunomodulatory therapy: IVIG 40gm daily x 4 days - Avoid antibiotics (fluoroquinolones, aminoglycosides), anticonvulsants, beta blockers, CCB, Mg Knee pain 07/05/2015 Overview (08/07/2015): Knee pain Assessment & Plan (01/30/2016 1:55 AM EDT): H/o osteoarthritis, takes diclofenac at home - Naproxen PRN for knee pain Encounters Date Type Department Care Team Description 04/27/2025 1:00 PM EDT Office Visit [facility] Neuromuscular Service [address] [facility], 8th [place] [address] Tammie Buckley MD, MPH Myasthenia from Last 3 Months Immunizations Immunization Administration Dates Next Due Influenza, Unspecified Formulation 10/27/2015(De ferred: Other - 00) Pneumococcal conjugate PCV13 12/16/2018( Deferred: Patient Refused),11/04/2018(Deferred: Patient Refused) Family History Medical History Relation Comments Heart attack Father Alzheimer's disease Mother Relation Status Comments Father Maternal Grandfather Maternal Grandmother Mother Paternal Grandfather Paternal Grandmother Sister Alive Social History Tobacco Use Types Packs/Day Years Used Date Smoking Tobacco: Former Cigarettes 2 20 0 01/29/1976 - 01/29/1996 Smokeless Tobacco: Never Tobacco Cessation:Counseling Given: Not Answered Alcohol Use Standard Drinks/Week Comments Yes 2 [...] Sign Reading Time Taken Comments Blood Pressure 156/80 04/27/2025 1:07 PM EDT Pulse 74 04/27/2025 1:07 PM EDT Temperature 36.7 C (98 F) 04/27/2025 1:07 PM EDT Respiratory Rate 16 12/16/2018 9:36 AM EDT Oxygen Saturation 96% 04/27/2025 1:07 PM EDT Inhaled Oxygen Concentration 21% 11/04/2018 3 :45 PM EST Weight 107.5 kg (237 lb) 09/04/2021 9:45 AM EST Height 182.9 cm (6') 09/04/2021 9:45 AM EST Body Mass Index 32.14 09/04/2021 9:45 AM EST Plan of Treatment Upcoming Encounters Date Type Department Care Team (Late st Contact Info) Description 04/30/2026 1:00 PM EDT Office Visit [facility] Neuromuscular Service [address] [facility] [place] [address] Cassie Campa, CHIEF ACCOUNTANT, DNP [address] [facility] [address] [place] [address] [email or web address] Health Maintenance Due Date Last Done Comments Adult Td,Tdap Booster 1953 LIPID PANEL 1953 DEPRESSION SCREENING 1965 HEPATITIS C SCREENING 1971 COLOGUARD 1998 COLONOSCOPY 1998 COLORECTAL CANCER SCREENING 1998 FIT TEST 1998 FOBT 1998 SIGMOIDOSCOPY 1998 VIRTUAL COLONOSCOPY 1998 PNEUMOCOCCAL VACCINES (50+ years) (1 of 1 - PCV) 2003 ZOSTER VACCINES (1 of 2) 2003 ABDOMINAL AORTIC ANEURYSM (AAA) SCREENING 2018 CREATININE LEVEL 12/17/2019 12/16/2018, 08/2018, 11/04/2018, Additional history exists POTASSIUM LEVEL 12/17/2019 12/16/2018, 04/0 08/2018, 11/04/2018, Additional history exists INFLUENZA VACCINE (#1) 2025 9, 08/06/2018, 08/06/2017, Additional history exists COVID-19 VACCINE ( - 2024- season) 2025 BLOOD PRESSURE 10/28/2025 04/27/2025 RSV VACCINE (1 - 1-dose 75+ series) 2028 SMOKING STATUS SCREENING (Once After 26 Yrs) Completed 04/27/2025 HEPATITIS A VACCINES Aged Out No long er eligible based on patient's age to complete this topic HIB VACCINES Aged Out No longer eligi ble based on patient's age to complete this topic MENINGOCOCCAL VACCINES (ACWY) Aged Out No longer eligible based on patient's age to complete this topic MENINGOCOCCAL VACCINES (B) Aged Out N o longer eligible based on patient's age to complete this topic Medical Devices Implanted Type Area Delivery Associate Device Identifier Shelf Expiration Date Model / Serial / Lot Knee Implant Component Size 10 Femoral Persona Vera Cement Cruciate Retaining Standard Left - [id number] Implanted:Qty: 1 on 12/15/2018 by Ashish Weston MD at [facility] NODATA Left: Knee JOLIE / DIV OF [employer] 10/28/2028 [id number] / / [id number] Description:The implant type , laterality (when applicable), size, and expiration date have been visually and verbally confirmed by the Surgeon, Circulating RN and Scrub Personnel. Knee Implant Component Size 10 Femoral Persona Vera Cement Cruciate Retaining Standard Right - [id number] Implanted:Qty: 1 on 11/03/2018 by Ashish Weston MD at [facility] Right: Knee JOLIE / [employer] 12/29/2027 [id number] / / [id number] Knee Patella 35mm Elis Persona All Polyethylene Cemented Conventional - [id number] Implanted:Qty: 1 on 11/03/2018 by Ashish Weston MD at [facility] Right: Knee JOLIE / [employer] 09/30/2026 [id number] / / [id number] Knee Implant 5.0deg Component Tibial Persona Titanium Stemmed Cemented Rt Size G - [id number] Implanted:Qty: 1 on 11/03/2018 by Ashish Weston MD at [facility] Right: Knee JOLIE / [employer] 01/29/2028 [id number] / / [id number] Cement Bone 40gr Palacos R Radiopaque Bx/1bo/1ea - [id number] Implanted:Qty: 1 on 11/03/2018 by Ashish Weston MD at [facility] Right: Knee JOLIE / [employer] 08/30/2022 [id number] / / [id number] Knee Insert 13mm Component Surface Persona Polyethylene Cruciate Retaining Fixed Conventional Right - [id number] Implanted:Qty: 1 on 11/03/2018 by Ashish Weston MD at [facility] Right: Knee JOLIE / [employer] 03/29/2021 [id number] / / [id number] Description:The implant type , laterality (when applicable), size, and expiration date have been visually and verbally confirmed by the Surgeon, Circulating RN and Scrub Personnel. Knee Insert 13mm L 7 12 Compnt Surf Persona Polyeth Cruc Retang Fixd Conventional Lt Fem Tib Gh - [id number] Implanted:Qty: 1 on 12/15/2018 by Ashish Weston MD at [facility] Left: Knee JOLIE / [employer] 09/29/2021 [id number] / / [id number] Description:The implant type , laterality (when applicable), size, and expiration date have been visually and verbally confirmed by the Surgeon, Circulating RN and Scrub Personnel. Cement Bone Biomet Standard R 1x40 Us - [id number] Implanted:Qty: 1 on 12/15/2018 by Ashish Weston MD at [facility] Left: Knee [facility]IE [facility] 02/28/2020 [id number] / / [id number] Description:The implant type , laterality (when applicable), size, and expiration date have been visually and verbally confirmed by the Surgeon, Circulating RN and Scrub Personnel. Cement Bone Biomet Standard R 1x40 Us - [id number] Implanted:Qty: 1 on 12/15/2018 by Ashish Weston MD at [facility] Left: Knee JOLIE / [employer] 02/28/2020 [id number] / / [id number] Description:The implant type , laterality (when applicable), size, and expiration date have been visually and verbally confirmed by the Surgeon, Circulating RN and Scrub Personnel. Knee Implant 5deg Component Tibial Persona Titanium Stemmed Cemented Lt Size G - [id number] Implanted:Qty: 1 on 12/15/2018 by Ashish Weston MD at [facility] Left: Knee JOLIE / [employer] 08/30/2028 [id number] / / [id number] Description:The implant type , laterality (when applicable), size, and expiration date have been visually and verbally confirmed by the Surgeon, Circulating RN and Scrub Personnel. Knee Patella 35mm Elis Persona All Polyethylene Cemented Conventional - [id number] Implanted:Qty: 1 on 12/15/2018 by Ashish Weston MD at [facility] Left: Knee JOLIE / DIV OF [employer] 08/30/2026 [id number] / / [id number] Description:The implant type , laterality (when applicable), size, and expiration date have been visually and verbally confirmed by the Surgeon, Circulating RN and Scrub Personnel. Procedures Procedure Name Priority Date/Time Associated Diagnosis Comments BASIC METABOLIC PANEL (BMP) Routine 12/16/2018 7:13 AM EDT from Last 3 Months or Most Recently Relevant to Health Maintenance Results * (ABNORMAL) Basic metabolic panel (12/16/2018 7:13 AM EDT) SODIUM 142 136 - 145 mmol/L [facility] CHLORIDE 102 95 - 106 mmol/L [facility] POTASSIUM 3.9 3.5 - 5.2 mmol/L [facility] CO2 28 20 - 31 mmol/L [facility] BUN 14 9 - 23 mg/dL [facility] CREATININE 0.73 0.50 - 1.30 mg/dL [facility] GLUCOSE 130(H) 74 - 106 mg/dL [facility] CALCIUM 9.1 8.7 - 10.4 mg/dL [facility] EGFR 97 >60 mL/min/1.7 3m2 [facility] Comment:If patient is black, multiply result by 1.159. Estimated glomerular filtration rate calculated using the CKD-EPI equation. ANION GAP 12 3 - 17 mmol/L [facility] Blood 12/16/2018 7:13 AM EDT 12/16/2018 7:40 AM EDT us Ashish Weston MD LAB BLOOD BKR ORDERABLES Hallie l Result [facility] [address] [place] [address] from Last 3 Months or Most Recently Relevant to Health Maintenance Insurance MEDICARE PART A & [place] [address] [place] [address] [employer] MEDEX SUPPLEMENT MEDICARE PART A & B [employer] MEDEX SUPPLEMENT MEDICARE PART A & B [employer] MEDEX SUPPLEMENT MEDICARE PART A & B [employer] MEDEX SUPPLEMENT MEDICARE PART A & B [employer] MEDEX SUPPLEMENT MEDICARE PART A & B [employer] MEDEX SUPPLEMENT MEDICARE PART A & B [employer] MEDEX SUPPLEMENT MEDICARE PART A & B Member Subscriber Plan / Payer (Ef fective 2015-Present) Name:Lui Aretaga Member ID:[id number] Relation to Subscriber:Self Name:Lui Arteaga Subscriber ID:[id number] Payer ID:[id number] Group ID:Not on file Type:Medicare Address: [employer] [facility] [address] [employer] MEDEX SUPPLEMENT MEDICARE PART A & B [employer] MEDEX SUPPLEMENT MEDICARE PART A & B [employer] MEDEX SUPPLEMENT Advance Directives For more information, please contact: [phone] (9AM - 5PM [facility], Thursday-Thursday) Documents on File Type Date Recorded Patient Tester [employer] an[employer] Healthcare Proxy 02/08/2016 1:43 PM Signed 01/30/2016 * Full Code (Presumed) (Latest Code Status on File) Date Activated Date Inactivated Comments 12/15/2018 12:32 PM 12/16/2018 2:44 PM * Full Code (Presumed) Date Activated Date Inactivated Comments 12/15/2018 7:13 AM 12/15/2018 12:32 PM * Full Code (Presumed) Date Activated Date Inactivated Comments 11/03/2018 4:36 PM 11/05/2018 3:59 PM * Full Code (Presumed) Date Activated Date Inactivated Comments 11/03/2018 2:30 PM 11/03/2018 4:36 PM * Full Code (Presumed) Date Activated Date Inactivated Comments 05/02/2016 12:05 PM 05/04/2016 2:13 PM Care Teams Refrigeration Tech Relationship Specialty Start Date End Date Janice Slater MD [facility] [place] [address] PCP - General Internal Medicine 10/31/15 Jamaal Gamboa MD [address] [facility] [place] [address] [email or web address] Cardiothoracic Surgery 06/11/21 Additional Source Comments The information contained in this document represents components of the legal health record. It is not the complete legal health record.[facility]
--- OUTSIDE RECORDS SUMMARY | 2025-07-25 10:36 | XMS_ITS | Clinical Summary ---
Author Organization [facility], Address [address] [place] [address] Phone Care Team Providers Care Geological Manager Name Role Phone Ramírez Slater MD Primary Care Provider [phone] Allergies Active Allergy Reactions Criticality Noted Date [...] INSTRUCTED. 3 Active chlorthalidone 25 MG tablet TAKE 1 TABLET BY MOUTH 1 TIME EACH DAY. 90 tablet 3 5 Active amLODIPine-carly zepril (LOTREL) 10-40 MG per capsule TAKE 1 CAPSULE BY MOUTH EVERY DAY 90 capsule 2 5 Active Active Problems Problem Noted Date Diagnosed Date Obesity 03/27/2023 COVID-19 viral pneumonia 12/28/2020 Essential hypertension Hernandez's anemia Dyslipidemia Myasthenia gravis Microcytic anemia Impaired fasting glucose Immunizations Immunization Administration Dates Next Due Influenza Split High Dose Preservative Free IM 0 05/30/2016,06/30/2015 Influenza, Unspecified 08/06/2018 Family History Medical History Relation Comments Heart disease Father Hypertension Father Anemia Mother Hernandez Dementia Mother Anemia Sibling Hernandez Relation Status Comments Father Mother Sibling Social History Tobacco Use Types Packs/Day Years Used Date Smoking Tobacco: Former Cigarettes 2 Q uit: 08/31/1995 Comments:Smoking History Inf o:Every [...] Sign Reading Time Taken Comments Blood Pressure 140/84 03/15/2025 4:38 PM EDT Pulse 70 03/15/2025 4:38 PM EDT Temperature - - Respiratory Rate 22 12/07/2017 12:00 PM EDT Oxygen Saturation - - Inhaled Oxygen Concentration - - Weight 113 kg (250 lb) 03/27/2023 4:10 PM EDT Height 177.8 cm (5' 10 ) 03/27/2023 4:10 PM EDT Body Mass Index 35.87 03/27/2023 4:10 PM EDT Plan of Treatment Upcoming Encounters Date Type Department Care Team (Late st Contact Info) Description 03/14/2026 1:30 PM EDT Office Visit [facility] [address] [place] [address] Magdy Tsai DO [address] [place] [phone] Health Maintenance Due Date Last Done Comments Colorectal Cancer Screening: Annual FOBT 2002 Colorectal Cancer Screening: Colonoscopy 2002 Colorectal Cancer Screening: Sigmoidoscopy 2002 Pneumococcal Vaccine: 50+ Years (1 of 1 - PCV) 2003 Influenza Vaccine (#1) 2025 8, 05/30/2016, 06/30/2015 Hepatitis B Vaccine Aged Out No longe r eligible based on patient's age to complete this topic Insurance Medicare [facility] Care Teams Geological Manager Relationship Specialty Start Date End Date Ramírez Slater MD PCP - General 07/05/19
--- OUTSIDE RECORDS SUMMARY | 2025-07-25 10:37 | XMS_ITS | Encounter Summary ---
Author Organization [facility] Address [facility] [address] [place] [address] Phone Care Team Providers Care Incinerator Plant Laborer Name Role Phone Janice Slater MD Primary Care Provider Jamaal Gamboa MD Unavailable [phone] Encounter Details Date Type Department Care Team (Late st Contact Info) Description 05/06/2020 Procedure Pass [facility] Imaging - CT, [address] [facility] [address] [place] [address] Social History Tobacco Use Types Packs/Day Years [...] of Assessment Author No 05/04/2016 11:04 AM Jaent Gamez MD * Patient has serious difficulty [...] Upcoming Encounters Date Type Department Care Team ([facility] st Contact Info) Description 04/30/2026 1:00 PM EDT Office Visit [facility] Neuromuscular Service [address] [facility] 8th [place] [address] Cassie Campa, COLOR TELEVISION CONSOLE MONITOR, DNP [address] [facility] [address] [place] [address] [email or web address] documented as of this encounter Visit Diagnoses Not on filedocumented in this encounter Care Teams Incinerator Plant Laborer Relationship Specialty Start Date End Date Janice Slater MD [facility] [place] [address] PCP - General Internal Medicine 10/31/15 Jamaal Gamboa MD [facility] [place] [address] [email or web address] Cardiothoracic Surgery 06/11/21 documented as of this encounter Additional Source Comments The information contained in this document represents components of the legal health record. It is not the complete legal health record.[facility]
--- OUTSIDE RECORDS SUMMARY | 2025-07-25 10:37 | XMS_ITS | Encounter Summary ---
Author Organization [facility] Address [facility] [address] [place] [address] Phone Care Team Providers Care Base Remover Name Role Phone Janice Slater MD Primary Care Provider Jamaal Gamboa MD Unavailable [phone]- [phone] Encounter Details Date Type Department Care Team (Late st Contact Info) Description 06/08/2018 Procedure Pass [facility] Imaging - CT, Main [place] [address] [place] [address] Social History Tobacco Use Types Packs/Day Years [...] Upcoming Encounters Date Type Department Care Team ([facility] st Contact Info) Description 04/30/2026 1:00 PM EDT Office Visit [facility] [place] [facility] [address] [facility], 8th [place] [address] Cassie Campa, AIR CONDITIONER INSTALLER HELPER, DNP [address] [facility] [address] [place] [address] [email or web address] documented as of this encounter Visit Diagnoses Not on filedocumented in this encounter Care Teams Base Remover Relationship Specialty Start Date End Date Janice Slater MD [facility] [place] [address] PCP - General Internal Medicine 10/31/15 Jamaal Gamboa MD [facility] [place] [address] [email or web address] Cardiothoracic Surgery 06/11/21 documented as of this encounter Additional Source Comments The information contained in this document represents components of the legal health record. It is not the complete legal health record.[facility]
--- OUTSIDE RECORDS SUMMARY | 2025-07-25 10:37 | XMS_ITS | Encounter Summary ---
Author Organization [facility] Address Critical access hospital [address] [place] [address] Phone Care Team Providers Care Engagement Executive Name Role Phone Janice Slater MD Primary Care Provider Jamaal Gamboa MD Unavailable [phone]- [phone] Encounter Details Date Type Department Care Team (Late st Contact Info) Description 06/09/2017 Procedure Pass [facility] Imaging - CT, Main [place] [address] [place] [address] Social History Tobacco Use Types Packs/Day Years [...] Upcoming Encounters Date Type Department Care Team ([facility] st Contact Info) Description 04/30/2026 1:00 PM EDT [place] [facility] [place] [address] [facility], 8th [place] [address] Cassie Campa, INSURANCE RISK MANAGER, DNP [address] [facility] [address] [place] [address] [email or web address] documented as of this encounter Visit Diagnoses Not on filedocumented in this encounter Care Teams Engagement Executive Relationship Specialty Start Date End Date Janice Slater MD [facility] [place] [address] PCP - General Internal Medicine 10/31/15 Jamaal Gamboa MD [facility] [place] [address] [email or web address] Cardiothoracic Surgery 06/11/21 documented as of this encounter Additional Source Comments The information contained in this document represents components of the legal health record. It is not the complete legal health record.[facility]
--- OUTSIDE RECORDS SUMMARY | 2025-07-25 10:37 | XMS_ITS | Encounter Summary ---
Author Organization [facility] Address [facility] [address] [place] [address] Phone Care Team Providers Care Reagent Tender Name Role Phone Janice Slater MD Primary Care Provider Jamaal Gamboa MD Unavailable [phone]- [phone] Encounter Details Date Type Department Care Team (Late st Contact Info) Description 11/03/2018 Procedure Pass [facility] PERIOPERATIVE DEPT [address] [place] [address] Social History Tobacco Use Types Packs/Day Years [...] Description 04/30/2026 1:00 PM EDT Office Visit [facility] [place] [facility] [address] [facility], 8th [place] [address] Cassie Campa, STREET LIGHT SERVICER, DNP 165 [facility] [address] [place] [address] [email or web address] documented as of this encounter Visit Diagnoses Not on filedocumented in this encounter Care Teams Reagent Tender Relationship Specialty Start Date End Date Janice Slater MD [address] [place] [address] [place] [address] PCP - General Internal Medicine 10/31/15 Jamaal Gamboa MD [address] [place] [address] [place] [address] [email or web address] Cardiothoracic Surgery 06/11/21 documented as of this encounter Additional Source Comments The information contained in this document represents components of the legal health record. It is not the complete legal health record.[facility]
--- OUTSIDE RECORDS SUMMARY | 2025-07-25 10:37 | XMS_ITS | Clinical Summary ---
Author Organization [facility] ity Address [address] [place] [address] Care Team Providers Care Income Tax Analyst Name Role Phone Unavailable Primary Care Provider [...] 2003 Zoster Vaccines (1 of 2) 2003 Depression Screening 08/31/2024 COVID-19 Vaccine (1 - 2024-2 6 season) 2025 Influenza Vaccine (#1) 2025 RSV Immunization Adult Patie nts (1 - 1-dose 75+ series) 2028 HIB [...] age to complete this topic Meningococcal B Vaccine Aged Out No l onger eligible based on patient's age to complete this topic RSV Immunization Patients Un mine 20 months Aged Out No longer eligible b ased on patient's age to complete this topic Varicella Vaccines Aged Out No longer eligible based on patient's age to complete this topic Advance Directives Documents on File Type Date Recorded Patient Aircraft Mechanic Armament Expl anation Health Care Decision (hx) 12/13/2020 AD JACOB DIRECTIVE
--- OUTSIDE RECORDS SUMMARY | 2025-07-25 10:37 | XMS_ITS | Encounter Summary ---
Author Organization [facility] Address [address] [place] [address] Phone Care Team Providers Care Float Nurse Name Role Phone Ramírez Slater MD Primary Care Provider [phone]- [phone] Reason for Visit * Reason Comments Med Change Request Encounter Details Date Type Department Care Team (Late st Contact Info) Description 12/25/2021 Refill [facility] [address] [place] [address] Magdy Tsai DO [address] [facility] [address] [place] [address] Essential hypertension; Myasthenia gravis, not [...] documented as of this encounter Functional Status documented as of this encounter Plan of Treatment Upcoming Encounters Date Type Department Care Team (Late st Contact Info) Description 03/14/2026 1:30 PM EDT Office Visit [facility] [address] [place] [address] Magdy Tsai DO [address] [facility] [address] [place] [address] documented as of this encounter Visit Diagnoses Diagnosis Essential hypertension Myasthenia gravis, not otherwise specified (HCC) documented in this encounter Care Teams Float Nurse Relationship Specialty Start Date End Date Ramírez Slater MD PCP - General 07/05/19 documented as of this encounter
--- OUTSIDE RECORDS SUMMARY | 2025-07-25 10:37 | XMS_ITS | Encounter Summary ---
Author Organization [facility] Address Critical access hospital [address] [place] [address] Phone Care Team Providers Care Die Cast Patternmaker Name Role Phone Janice Slater MD Primary Care Provider Jamaal Gamboa MD Unavailable [phone]- [phone] Encounter Details Date Type Department Care Team (Late st Contact Info) Description 06/12/2020 Procedure Pass [facility] Imaging - CT, Main [place] [address] [place] [address] Social History Tobacco Use Types Packs/Day Years [...] Upcoming Encounters Date Type Department Care Team ([facility] st Contact Info) Description 04/30/2026 1:00 PM EDT Office [place] [facility] [place] [facility] [address] [facility], 8th [place] [address] Cassie Campa, MULTIPLE SLIDE OPERATOR, DNP [address] [facility] [address] [place] [address] [email or web address] documented as of this encounter Visit Diagnoses Not on filedocumented in this encounter Care Teams Die Cast Patternmaker Relationship Specialty Start Date End Date Janice Slater MD [facility] [place] [address] PCP - General Internal Medicine 10/31/15 Jamaal Gamboa MD [facility] [place] [address] [email or web address] Cardiothoracic Surgery 06/11/21 documented as of this encounter Additional Source Comments The information contained in this document represents components of the legal health record. It is not the complete legal health record.[facility]
--- OUTSIDE RECORDS SUMMARY | 2025-07-25 10:37 | XMS_ITS | Encounter Summary ---
Author Organization [facility] [facility], Address [address] [place] [address] Phone Care Team Providers Care Project Safety Manager Name Role Phone Ramírez Slater MD Primary Care Provider [phone]- [phone] Encounter Details Date Type Department Care Team (Late Contact Info) Description 03/16/2025 Documentation Only [facility] [address] [place] [place] [address] Fabrice [place], [place] [address] [place] [address] Social History Tobacco Use Types [...] Visit [facility] [address] [place] [address] Magdy Tsai [address] [place] [address] documented as of this encounter Visit Diagnoses Not on filedocumented in this encounter Care Teams Project Safety Manager Relationship Specialty Start Date End Date Ramírez Slater MD PCP - General 07/05/19 documented as of this encounter
--- OUTSIDE RECORDS SUMMARY | 2025-07-25 10:37 | XMS_ITS | Encounter Summary ---
Author Organization [facility] [place], Address [address] [place] [address] Phone Care Team Providers Care Station Installation Supervisor Name Role Phone Ramírez Slater MD Primary Care Provider [phone]- [phone] Encounter Details Date Type Department Care Team (Late Contact Info) Description 03/31/2023 Documentation Only [facility] [address] [place] [address] [place], [place] [address] [place] [address] Social History Tobacco Use Types [...] Visit [facility] [address] [place] [address] Magdy Tsai [address] [place] [address] documented as of this encounter Visit Diagnoses Not on filedocumented in this encounter Care Teams Station Installation Supervisor Relationship Specialty Start Date End Date Ramírez Slater MD PCP - General 07/05/19 documented as of this encounter
== END 2025-07-25 10:17 | disposition home or self-care (01) ==
LOC: HO.HMCC 09:21
PROVIDERS: PCP Internal Medicine; Visit Provider Internal Medicine
DX: Z00.00 Encounter for general adult medical examination without abnormal findings (principal); G70.00 Myasthenia gravis without (acute) exacerbation; D56.1 Beta thalassemia; E11.65 Type 2 diabetes mellitus with hyperglycemia; I10 Essential (primary) hypertension; M17.0 Bilateral primary osteoarthritis of knee; K21.9 Gastro-esophageal reflux disease without esophagitis; K44.9 Diaphragmatic hernia without obstruction or gangrene; E79.0 Hyperuricemia without signs of inflammatory arthritis and tophaceous disease; Z86.0101 Personal history of adenomatous and serrated colon polyps; E78.2 Mixed hyperlipidemia

== ENCOUNTER → 2025-07-25 09:21 | Outpatient (BNVA) | payer MEDICARE, SELFPAY | PROVIDERS: PCP Internal Medicine; Visit Provider Internal Medicine | DX: Z13.31 Encounter for screening for depression (principal) | CPT/HCPCS: 96127 ==